=== PATIENT | male | born 1960 | race Caucasian/White ===

== ENCOUNTER 2018-06-25 18:54 | Emergency (ER) | payer BC ==
[2018-06-25 19:13] VITALS: RESP 18; BMI 36.9
[2018-06-25] MEDS ORDERED: Sodium Chloride 0.9% 1,000 ML IV STA (19:33)
--- NOTE | 2018-06-25 19:37 | ED PDOC ---
Arrival/HPI - General Chief Complaint: Abdominal Pain Time Seen by Provider: 06/25/18 19:12 Historian: Patient - History of Present Illness Narrative History of Present Illness (Text): 06/25/18 19:34 58 yo male, no prior hx, presents with abd pain since 5 days, nausea, decreased appetite. pt states no fevers, no cp, no sob. no urinary changes. Time/Duration: Other (5 days) Symptom Onset: Gradual Symptom Course: Unchanged Activities at Onset: Light Context: Home Past Medical History - Provider Review Nursing Documentation Reviewed: Yes - Pulmonary Hx Respiratory Tract Infection: Yes - Renal Hx Renal Disorder: No - Gastrointestinal Hx Gastrointestinal Disorders: No - Psychiatric Hx Depression: No Hx Emotional Abuse: No Hx Physical Abuse: No Hx Substance Use: No - Surgical History Hx Orthopedic Surgery: Yes (Right total knee replacement) - Anesthesia Hx Anesthesia: Yes - Suicidal Assessment Feels Threatened In Home Enviroment: No Family/Social History - Physician Review Nursing Documentation Reviewed: Yes Family/Social History: Unknown Family HX Smoking Status: Former Smoker Hx Alcohol Use: No Hx Substance Use: No Allergies/Home Meds Allergies/Adverse Reactions: Allergies levofloxacin [From Levaquin] Allergy (Verified 06/25/18 19:32) REDNESS Home Medications: Home Meds Medication Instructions Recorded Confirmed Acetaminophen/Oxycodone Hydr 2 tab PO Q6 PRN 06/19/15 06/19/15 [Percocet 10/325 mg Tab] Review of Systems - Physician Review All systems were reviewed & negative as marked: Yes - Review of Systems Constitutional: Normal Eyes: Normal ENT: Normal Respiratory: Normal Cardiovascular: Normal Gastrointestinal: Abdominal Pain, Nausea. absent: Vomiting Genitourinary Male: Normal Musculoskeletal: Normal Skin: Normal Neurological: Normal Endocrine: Normal Hemo/Lymphatic: Normal Psychiatric: Normal Physical Exam Vital Signs Reviewed: Yes Vital Signs Temp Pulse Resp BP Pulse Ox 06/25/18 23:05 98.8 F 68 18 138/92 H 95 06/25/18 21:00 98.4 F 68 18 132/87 95 06/25/18 19:04 98.4 F 79 18 148/102 H 99 Temperature: Afebrile Blood Pressure: Normal Pulse: Regular Respiratory Rate: Normal Appearance: Positive for: Well-Appearing, Non-Toxic, Comfortable Pain Distress: None Mental Status: Positive for: Alert and Oriented X 3 - Systems Exam Head: Present: Atraumatic, Normocephalic Pupils: Present: PERRL Extroacular Muscles: Present: EOMI Conjunctiva: Present: Normal Mouth: Present: Moist Mucous Membranes Neck: Present: Normal Range of Motion Respiratory/Chest: Present: Clear to Auscultation, Good Air Exchange. No: Respiratory Distress, Accessory Muscle Use Cardiovascular: Present: Regular Rate and Rhythm, Normal S1, S2. No: Murmurs Abdomen: Present: Tenderness (epigastric). No: Distention, Peritoneal Signs, Rebound, Guarding Back: Present: Normal Inspection Upper Extremity: Present: Normal Inspection. No: Cyanosis, Edema Lower Extremity: Present: Normal Inspection. No: Edema Neurological: Present: GCS=15, CN II-XII Intact, Speech Normal Skin: Present: Warm, Dry, Normal Color. No: Rashes Psychiatric: Present: Alert, Oriented x 3, Normal Insight, Normal Concentration Medical Decision Making ED Course and Treatment: 06/25/18 19:34 Impression: 58 year old male presents complaining of abdominal pain for the past 5 days associated with decreased appetite and nausea. ro gastritis pancreatiis colitis gallbladder pathology Plan: -- Labs -- Protonix Inj, IV Fluids, Zofran Inj -- Urinalysis -- Abdomen Complete US -- Reassess and disposition Progress Notes: EXAM: US Abdomen Complete Dictated and Authenticated by: Tirso Ríos MD 06/25/2018 10:07 PM IMPRESSION: Liver with increased echogenicity suggesting hepatic steatosis. No gallstones or biliary obstruction is noted. 2 simple hepatic cysts are present. 06/25/18 23:55 noted labs minimal elevated lipaase <3 x upper limit normal. abd soft minimal ttp. pt offered obs, declines, prefers to go home. advise strict return precautions states has pmd appt wednesday. - Lab Interpretations Lab Results: 06/25/18 20:33 06/25/18 20:33 Lab Results 06/25/18 20:33: Sodium 141, Potassium 4.1, Chloride 99, Carbon Dioxide 29, Anion Gap 16, BUN 14, Creatinine 0.8, Est GFR ( Amer) > 60, Est GFR (Non- Af Amer) > 60, Random Glucose 104, Calcium 10.0, Magnesium 2.0, Total Bilirubin 0.7, AST 27, ALT 27, Alkaline Phosphatase 89, Total Protein 8.1, Albumin 4.7, Globulin 3.4, Albumin/Globulin Ratio 1.4, Lipase 381 H 06/25/18 20:33: Urine Color Yellow, Urine Appearance Clear, Urine pH 6.5, Ur Specific [place] 1.010, Urine Protein Negative, Urine Glucose (UA) Negative, Urine Ketones 15 H, Urine Blood Negative, Urine Nitrate Negative, Urine Bilirubin Negative, Urine Urobilinogen 0.2, Ur Leukocyte Esterase Negative 06/25/18 20:33: PT 11.6, INR 1.02, APTT 30.6 06/25/18 20:33: WBC 10.9 D, RBC 5.80, Hgb 17.6, Hct 49.2, MCV 84.8, MCH 30.3, MCHC 35.8, RDW 13.3, Plt Count 315, MPV 9.9, Gran % 67.0, Lymph % (Auto) 22.8, [place] % (Auto) 7.0 H, Eos % (Auto) 2.4, Baso % (Auto) 0.8, Gran # 7.27 H, Lymph # (Auto) 2.5, [place] # (Auto) 0.8 H, Eos # (Auto) 0.3, Baso # (Auto) 0.09 I have reviewed the lab results: Yes - RAD Interpretation Radiology Orders: 06/25/18 19:33 ABDOMEN COMPLETE [US] Stat 06/25/18 22:12 ABD & PELVIS IV CONTRAST ONLY [CT] Stat - Medication Orders Current Medication Orders: Discontinued Medications Sodium Chloride (Sodium Chloride 0.9%) 1,000 mls @ 1,000 mls/hr IV .Q1H STA Stop: 06/25/18 20:32 Last Admin: 06/25/18 20:45 Dose: 1,000 mls/hr eMAR Start Stop Document 06/25/18 20:45 [place] (Rec: 06/25/18 20:45 [id number]) Intravenous Solution Start Date 06/25/18 Start Time 20:45 End Date 06/25/18 End time 21:45 Total Infusion Time 60 Ondansetron HCl (Zofran Inj) 4 mg IVP STAT STA Stop: 06/25/18 19:34 Last Admin: 06/25/18 20:43 Dose: 4 mg IVP Administration Document 06/25/18 20:43 LA (Rec: 06/25/18 20:43 [id number]) Charges for Administration # of IVP Administrations 1 Pantoprazole Sodium (Protonix Inj) 40 mg IVP STAT STA Stop: 06/25/18 19:34 Last Admin: 06/25/18 20:43 Dose: 40 mg IVP Administration Document 06/25/18 20:43 LA (Rec: 06/25/18 20:43 [email or web address]) Charges for Administration # of IVP Administrations 1 Disposition/Present on Arrival - Present on Arrival Any Indicators Present on Arrival: No History of DVT/PE: No History of Uncontrolled Diabetes: No Urinary Catheter: No History of Decub. Ulcer: No History Surgical Site Infection Following: None - Disposition Have Diagnosis and Disposition been Completed?: Yes Diagnosis: Abdominal pain, Elevated lipase Disposition: HOME/ ROUTINE Disposition Time: 23:00 Patient Problems: Current Active Problems Problem Status Onset Abdominal pain Acute Elevated lipase Acute Condition: STABLE Discharge Instructions (ExitCare): Acute Abdomen (Belly Pain) Additional Instructions: please discuss all results with your doctor. return to er with worsening symptoms or concerns. please see specialist. you are declining observation in the hospital, but you are able to return to any er with any concern at any time. Prescriptions: Pantoprazole Sodium [Protonix] 40 mg PO DAILY #20 ect Referrals: Volodymyr Gleason MD [Staff Provider] - Follow up with primary Forms: Simple [employer] (Macedonian)
[2018-06-25 20:55] LABS: PH,URINE 6.5 (4.7-8.0); URINE BILIRUBIN NEGATIVE (NEGATIVE); URINE BLOOD NEGATIVE (NEGATIVE); URINE GLUCOSE (UA) NEGATIVE (NEGATIVE); URINE LEUKOCYTE ESTERASE NEGATIVE Leu/uL (NEGATIVE); URINE PROTEIN NEGATIVE mg/dL (<30 mg/dL); URINE UROBILINOGEN 0.2 E.U./dL (<1 E.U./dL)
[2018-06-25 20:56] LABS: URINE APPEARANCE CLEAR (CLEAR); URINE COLOR YELLOW (YELLOW)
[2018-06-25 20:58] LABS: BASO # 0.09 K/mm3 (0.0-2.0); BASO % 0.8 % (0.0-3.0); EOS # 0.3 (0.0-0.7); EOS % 2.4 % (1.5-5.0); GRAN # 7.27 (1.4-6.5); HEMOGLOBIN 17.6 g/dL (14.0-18.0); LYMPH # 2.5 (1.2-3.4); LYMPH % 22.8 % (22.0-35.0); MEAN CELL VOLUME 84.8 fl (80.0-105.0); MEAN CORPUSCULAR HEMOGLOBIN 30.3 pg (25.0-35.0); MEAN CORPUSCULAR HGB CONC 35.8 g/dl (31.0-37.0); MEAN PLATELET VOLUME 9.9 fl (7.0-11.0); MONO # 0.8 (0.1-0.6); RBC 5.8 10^6/uL (3.5-6.1); RED CELL DISTRIBUTION WIDTH 13.3 % (11.5-14.5); WHITE BLOOD COUNT 10.9 10^3/ul (4.5-11.0)
[2018-06-25 21:00] VITALS: PULSE 68; O2SAT 95
[2018-06-25 21:02] LABS: INR 1.02; PROTHROMBIN TIME 11.6 SECONDS (9.4-12.5)
[2018-06-25 21:04] LABS: PARTIAL THROMBOPLASTIN TIME 30.6 Seconds (25.1-36.5)
[2018-06-25 21:06] LABS: ALB/GLOB RATIO 1.4 (1.1-1.8); ALBUMIN 4.7 g/dL (3.0-4.8); ALT/SGPT 27 U/L (7-56); AST/SGOT 27 U/L (17-59); BLOOD UREA NITROGEN 14 mg/dL (7-21); GFR AFRICAN-AMERICAN > 60; GFR NON-AFRICAN AMERICAN > 60; LIPASE 381 U/L (23-300)
[2018-06-25 23:10] VITALS: BP 138/92; TEMP 98.8
--- NOTE | 2018-06-26 13:20 | CT ---
Date of service: 06/25/2018 PROCEDURE: CT Abdomen and Pelvis with contrast HISTORY: upper abd pain elevated lipase COMPARISON: 06/19/2015 TECHNIQUE: Contrast dose: 150 cc of Omni 350 Radiation dose: Total exam DLP = 1159 mGy-cm. This CT exam was performed using one or more of the following dose reduction techniques: Automated exposure control, adjustment of the mA and/or kV according to patient size, and/or use of iterative reconstruction technique. FINDINGS: LOWER THORAX: Unremarkable. LIVER: Scattered simple cysts are seen in the liver unchanged from the previous study GALLBLADDER AND BILE DUCTS: Unremarkable. PANCREAS: Unremarkable. No gross lesion or ductal dilatation. SPLEEN: Unremarkable. ADRENALS: Unremarkable. No mass. KIDNEYS AND URETERS: Unremarkable. No hydronephrosis. No solid mass. VASCULATURE: Unremarkable. No aortic aneurysm. BOWEL: Unremarkable. No obstruction. No gross mural thickening. APPENDIX: Normal appendix. PERITONEUM: Unremarkable. No free fluid. No free air. LYMPH NODES: Unremarkable. No enlarged lymph nodes. BLADDER: Unremarkable. REPRODUCTIVE: Unremarkable. 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
--- NOTE | 2018-06-26 15:04 | US ---
Date of service: 06/25/2018 HISTORY: upper abd pain COMPARISON: None. TECHNIQUE: Sonographic evaluation of the abdomen. FINDINGS: LIVER: Measures 14.0 cm. Increased echogenicity of the liver parenchyma. No mass. No intrahepatic bile duct dilatation. Several simple cysts of the liver. GALLBLADDER: Unremarkable. No gallstones. COMMON BILE DUCT: Measures 6 mm. No stones. No dilatation. PANCREAS: Not visualized due to bowel gas RIGHT KIDNEY: Measures 11.7 x 5.8 x 7.5cm. Normal echogenicity. No calculus, mass, or hydronephrosis. LEFT KIDNEY: Measures 11.3 x 5.4 x 7.9cm. Normal echogenicity. No calculus, mass, or hydronephrosis. SPLEEN: Normal in size and contour. No mass. 9.4 x 4.2 x 4.4 cm AORTA: Not visualized IVC: Not visualized OTHER FINDINGS: The report concurs with the preliminary [facility] report IMPRESSION: Fatty infiltration of the liver. Simple cysts in the liver.
== END 2018-06-25 23:50 | disposition home or self-care (01) ==
LOC: ED 18:54
DX: R10.9 Unspecified abdominal pain (principal); R74.8 Abnormal levels of other serum enzymes; Z87.891 Personal history of nicotine dependence
CPT/HCPCS: 74177; 76700; 80053; 81003; 83690; 83735; 85025; 85610; 85730; 96361; 96374; 96375; 99284; C9113; J2405; J7030; Q9967

== ENCOUNTER 2018-09-21 19:10 | Observation (INO) | payer BC ==
[2018-09-21 19:16] VITALS: BMI 34.5
[2018-09-21] MEDS: Sodium Chloride 0.9% 1,000 ML IV SCH (19:58)
[2018-09-21] MEDS: Alum-Mag Hydrox-Simethicone Susp (30 mL) PO STA ×2 (20:01→20:05)
[2018-09-21 20:09] LABS: VENOUS BLOOD GAS PO2 49 mm/Hg (30-55); VENOUS BLOOD PH 7.51 (7.32-7.43)
--- NOTE | 2018-09-21 20:12 | ED PDOC ---
Arrival/HPI - General Chief Complaint: Abdominal Pain Time Seen by Provider: 09/21/18 19:30 - History of Present Illness Narrative History of Present Illness (Text): 58 yr old male p/w abdominal pain. Pt notes abdominal pain is throbbing, epigastric, without radiation, feels similiar to previous abdominal pain except worse. He notes that he has had previous CT scans as well as previous colonscopies with his GI doctor which have not revealed the reason for his abdominal pain. He notes that he was sent by his PMD, Dr. Salazar for further evaluation however, with possible imaging. No N/V No flank tenderness No fever, chills or night sweats No constipation or diarrhea No dark or bloody stool No headache or trauma or fall No neck pain PMD: Dr. Salazar Past Medical History - Infectious Disease Hx of Infectious Diseases: None - Pulmonary Hx Respiratory Tract Infection: Yes - Renal Hx Renal Disorder: No - Gastrointestinal Hx Gastrointestinal Disorders: No - Psychiatric Hx Depression: No Hx Emotional Abuse: No Hx Physical Abuse: No Hx Substance Use: No - Surgical History Hx Orthopedic Surgery: Yes (Right total knee replacement) - Anesthesia Hx Anesthesia: Yes - Suicidal Assessment Feels Threatened In Home Enviroment: No Family/Social History Family/Social History: Unknown Family HX Smoking Status: Former Smoker Hx Alcohol Use: No Hx Substance Use: No Allergies/Home Meds Allergies/Adverse Reactions: Allergies levofloxacin [From Levaquin] Allergy (Verified 06/25/18 19:32) REDNESS Home Medications: Home Meds Medication Instructions Recorded Confirmed Acetaminophen/Oxycodone Hydr 2 tab PO Q6 PRN 06/19/15 06/19/15 [Percocet 10/325 mg Tab] Review of Systems - Review of Systems Constitutional: absent: Fatigue, Weight Change, Fevers Eyes: absent: Vision Changes, Photophobia ENT: absent: Hearing Changes, Tinnitus, TMJ Pain Respiratory: absent: SOB, Cough, Sputum, Wheezing Cardiovascular: absent: Chest Pain, Palpitations, Edema, Calf Pain Gastrointestinal: Abdominal Pain. absent: Stool Changes, Constipation, Diarrhea, Nausea, Vomiting, Appetite Changes Genitourinary Male: absent: Dysuria, Frequency Musculoskeletal: absent: Arthralgias, Back Pain Skin: absent: Rash, Pruritis, Skin Lesions Neurological: absent: Headache, Dizziness Endocrine: absent: Diaphoresis, Polyuria, Polydipsia Hemo/Lymphatic: absent: Adenopathy Psychiatric: absent: Anxiety, Depression Physical Exam Vital Signs Reviewed: Yes Vital Signs Temp Pulse Resp BP Pulse Ox 09/21/18 19:16 98.2 F 81 20 138/93 H 99 Temperature: Afebrile Blood Pressure: Hypertensive Pulse: Regular Respiratory Rate: Normal Appearance: Positive for: Well-Appearing Pain Distress: Mild Mental Status: Positive for: Alert and Oriented X 3 - Systems Exam Head: Present: Atraumatic, Normocephalic Pupils: Present: PERRL. No: Sluggish Extroacular Muscles: Present: EOMI. No: Gaze Palsy Conjunctiva: Present: Normal. No: Injected Ears: Present: Normal Pharnyx: Present: Normal Nose (Internal): Present: Normal Inspection Neck: Present: Normal Range of Motion. No: Meningeal Signs, MIDLINE TENDERNESS Respiratory/Chest: Present: Clear to Auscultation, Good Air Exchange. No: Respiratory Distress, Accessory Muscle Use Cardiovascular: Present: Regular Rate and Rhythm, Normal S1, S2. No: Murmurs, Irregular Rhythm Abdomen: Present: Tenderness (epigastric), Normal Bowel Sounds. No: Distention, Peritoneal Signs, Rebound, Guarding Back: Present: Normal Inspection. No: CVA Tenderness, Midline Tenderness, Paraspinal Tenderness Upper Extremity: Present: Normal Inspection, Normal ROM, NORMAL PULSES. No: Cyanosis, Edema Lower Extremity: Present: Normal Inspection, CALF TENDERNESS, NORMAL PULSES Neurological: Present: GCS=15, CN II-XII Intact, Speech Normal, Motor Func Grossly Intact, Normal Sensory Function, Normal Cerebellar Funct Skin: Present: Warm, Dry, Normal Color Psychiatric: Present: Alert, Oriented x 3 Medical Decision Making ED Course and Treatment: 58 yr old M w/ hx of abdominal pain similiar to recurrent pain w/ negative colonscopy and CT recently presents w/ instructions from primary for further evaluation. Given hx of recent abdominal pain w/ workup unlikely any major findings as pt is well appearing in NAD with VSS with largely benign exam other than abdominal pain. Will seek CT however given PMD eval. No urinary complaints or d/c or rash. No hx of std. No trauma. Pending imaging and labs. 09/21/18 21:00 labs largely unremarkable besides mild leukocytosis pending CT read Signed out to Dr. Montablo - RAD Interpretation Radiology Orders: 09/21/18 19:43 ABDOMEN & PELVIS [ABD & PELVIS IV CONTRAST ONLY] [CT] Stat - Medication Orders Current Medication Orders: Sodium Chloride (Sodium Chloride 0.9%) 1,000 mls @ 100 mls/hr IV .Q10H CARMEL Discontinued Medications Al Hydrox/Mg Hydrox/Simethicone (Maalox Plus 30 Ml) 30 ml PO STAT STA Stop: 09/21/18 19:44 Dicyclomine HCl (Bentyl) 10 mg PO ONCE ONE Stop: 09/21/18 19:44 Famotidine (Pepcid) 20 mg IVP STAT STA Stop: 09/21/18 19:45 Disposition/Present on Arrival - Present on Arrival Any Indicators Present on Arrival: No History of DVT/PE: No History of Uncontrolled Diabetes: No Urinary Catheter: No History of Decub. Ulcer: No History Surgical Site Infection Following: None - Disposition Have Diagnosis and Disposition been Completed?: Yes Diagnosis: Abdominal pain Disposition Time: 21:00 Patient Problems: Current Active Problems Problem Status Onset Intractable abdominal pain Acute Condition: GOOD Referrals: Boston Salazar MD [Primary Care Provider] - Follow up with primary Forms: [employer]amb[employer] (Hungarian)
[2018-09-21 20:13] LABS: ALB/GLOB RATIO 1.5 (1.1-1.8); ALBUMIN 4.6 g/dL (3.0-4.8); ALT/SGPT 29 U/L (7-56); AST/SGOT 24 U/L (17-59); BLOOD UREA NITROGEN 8 mg/dL (7-21); CALCIUM 9.8 mg/dL (8.4-10.5); GFR NON-AFRICAN AMERICAN > 60; LIPASE 80 U/L (23-300)
[2018-09-21 20:22] LABS: BASO # 0.02 K/mm3 (0.0-2.0); BASO % 0.2 % (0.0-3.0); EOS # 0.1 (0.0-0.7); GRAN # 8.53 (1.4-6.5); GRAN % 73.7 % (50.0-68.0); LYMPH # 2.1 (1.2-3.4); LYMPH % 17.7 % (22.0-35.0); MEAN CELL VOLUME 86.2 fl (80.0-105.0); MEAN CORPUSCULAR HEMOGLOBIN 30.5 pg (25.0-35.0); MEAN CORPUSCULAR HGB CONC 35.3 g/dl (31.0-37.0); MEAN PLATELET VOLUME 10.4 fl (7.0-11.0); MONO # 0.9 (0.1-0.6); MONO % 7.4 % (1.0-6.0); RBC 5.58 10^6/uL (3.5-6.1); RED CELL DISTRIBUTION WIDTH 14.1 % (11.5-14.5); WHITE BLOOD COUNT 11.6 10^3/uL (4.5-11.0)
[2018-09-21] MEDS ORDERED: Iohexol 350 MG/100 ML VIAL ONE (20:45)
--- NOTE | 2018-09-21 21:28 | ED PDOC ---
Physical Exam Vital Signs Temp Pulse Resp BP Pulse Ox 09/21/18 19:16 98.2 F 81 20 138/93 H 99 Medical Decision Making ED Course and Treatment: 09/21/18 21:00 Case endorsed to me by Dr. Kusum Singer, pending labs, imaging, and disposition. Pt, with no significant past medical history, presented for upper abdominal pain. 09/21/18 22:18 CT Abdomen and Pelvis shows: LUNG BASES: The lung bases appear clear. No pleural effusions are seen. LIVER: Numerous likely tiny hepatic cysts are seen again throughout the liver. GALLBLADDER AND BILE DUCTS: The gallbladder appears within normal limits. No radioopaque gallstones are seen. No biliary ductal dilatation is evident. PANCREAS: Unremarkable. SPLEEN: Unremarkable. ADRENAL GLANDS: Unremarkable. KIDNEYS, URETERS, AND BLADDER: No change is seen in a likely left upper pole renal cyst again. STOMACH AND BOWEL: Scattered diverticula are seen involving the descending and sigmoid colon without evidence of diverticulitis. Mild fecal retention is seen in the rectum. APPENDIX: The appendix is partially seen but no inflammatory changes are seen to suggest acute appendicitis. PERITONEUM: No free fluid. No free air. LYMPH NODES: No lymphadenopathy is evident. REPRODUCTIVE: A mildly enlarged prostate gland is seen which is partially calcified. VASCULATURE: No evidence of abdominal aortic aneurysm. BONES: No aggressive appearing osseous lesion. No acute osseous pathology evident. IMPRESSION: 1. Numerous likely tiny hepatic cysts are seen again throughout the liver. 2. No change is seen in a likely left upper pole renal cyst again. 3. A mildly enlarged prostate gland is seen which is partially calcified. 4. Scattered diverticula are seen involving the descending and sigmoid colon without evidence of diverticulitis. Electronically signed on Sep 21, 2018 10:08:38 PM EDT by: Yon Covington M.D., RHEA Certified By [facility] [employer] [facility] Fellowship Trained MRI and CT Specialist 09/21/18 22:40 Case discussed with medical legal investigator rehabilitation services aide, who is aware and agrees with plan. 09/21/18 22:[address] Worthy, who is aware and agrees with plan. Accepts pt in to hospitalist service. Pt will go to [facility] observation for abdominal pain 09/21/18 22:52 - Lab Interpretations Lab Results: 09/21/18 19:44 09/21/18 19:44 Lab Results 09/21/18 19:44: Sodium 137, Chloride 105, Potassium 3.9, Carbon Dioxide 24, Anion Gap 13, BUN 8, Creatinine 0.7 L, Est GFR ( Amer) > 60, Est GFR (Non-Af Amer) > 60, Random Glucose 101, Calcium 9.8, Magnesium 1.9, Total Bilirubin 0.7, AST 24, ALT 29, Alkaline Phosphatase 83, Total Protein 7.7, Albumin 4.6, Globulin 3.1, Albumin/Globulin Ratio 1.5, Lipase 80 09/21/18 19:44: pO2 49, VBG pH 7.51 H, VBG pCO2 32.0 L, VBG HCO3 25.5, VBG Total CO2 26.5, VBG O2 Sat (Calc) 92.0 H, VBG Base Excess 3.0 H, VBG Potassium 3.7, Sodium 138.0, Chloride 104.0, Glucose 98, Lactate 1.4, FiO2 21.0, Venous Blood Potassium 3.7 09/21/18 19:44: WBC 11.6 H, RBC 5.58, Hgb 17.0, Hct 48.1, MCV 86.2, MCH 30.5, MCHC 35.3, RDW 14.1, Plt Count 279, MPV 10.4, Gran % 73.7 H, Lymph % (Auto) 17.7 L, [place] % (Auto) 7.4 H, Eos % (Auto) 1.0 L, Baso % (Auto) 0.2, Gran # 8.53 H, Lymph # (Auto) 2.1, [place] # (Auto) 0.9 H, Eos # (Auto) 0.1, Baso # (Auto) 0.02 - RAD Interpretation Radiology Orders: 09/21/18 19:43 ABDOMEN & PELVIS [ABD & PELVIS IV CONTRAST ONLY] [CT] Stat Flat Folder: Radiologist - Medication Orders Current Medication Orders: Sodium Chloride (Sodium Chloride 0.9%) 1,000 mls @ 100 mls/hr IV .Q10H CARMEL Last Admin: 09/21/18 19:58 Dose: 100 mls/hr eMAR Start Stop Document 09/21/18 19:58 SS (Rec: 09/21/18 19:59 SS [id number]) Intravenous Solution Start Date 09/21/18 Start Time 19:59 Discontinued Medications Al Hydrox/Mg Hydrox/Simethicone (Maalox Plus 30 Ml) 30 ml PO STAT STA Stop: 09/21/18 19:44 Last Admin: 09/21/18 20:05 Dose: Not Given Non-Admin Reason: Patient Refused Dicyclomine HCl (Bentyl) 10 mg PO ONCE ONE Stop: 09/21/18 19:44 Last Admin: 09/21/18 20:01 Dose: 10 mg Famotidine (Pepcid) 20 mg IVP STAT STA Stop: 09/21/18 19:45 Last Admin: 09/21/18 20:02 Dose: 20 mg IVP Administration Document 09/21/18 20:02 SS (Rec: 09/21/18 20:02 [id number]) Charges for Administration # of IVP Administrations 1 Disposition/Present on Arrival - Present on Arrival Any Indicators Present on Arrival: No History of DVT/PE: No History of Uncontrolled Diabetes: No Urinary Catheter: No History of Decub. Ulcer: No History Surgical Site Infection Following: None - Disposition Have Diagnosis and Disposition been Completed?: Yes Diagnosis: Abdominal pain Disposition: HOSPITALIZED Disposition Time: 22:45 Patient Problems: Current Active Problems Problem Status Onset Abdominal pain Acute Condition: GOOD
[2018-09-21] MEDS ORDERED: Morphine 2 mg/ml ISec IVP STA (22:41)
--- NOTE | 2018-09-21 23:52 | CP.PCM.HP ---
Addendum entered and electronically signed by Roshni Tripathi DO 09/22/18 16:21: Pt recently finish detox rehab for opiate dependency. Pt admitted to using marijuana. Pt had recent hx of NSAID-induced gastritis. Original Note: <Carmen Brunson - Last Filed: 09/22/18 06:10> History of Present Illness - History of Present Illness History of Present Illness: Carmen Brunson, PGY1 Hospital H&P This is a 58 year old male with PMH of chronic back pain and chronic abdominal pain of unclear etiology presenting for one day history of abdominal pain. Pain started this morning at 8am, at rest, located in the epigastric region, non radiating, sharp, rated 10/10 at worst, intermittent and not relived or exacerbated by anything. Pain is associated with nausea, decreased appetite, and numbness/tingling in the B/L upper legs. Last bowel movement was in the morning, loose and dark red spots were noted per patient. Patient was seen in ED for similar complaints on 06/25/18 and had unremarkable workup at that time. He admits to having chronic abdominal pain since May of this year. He tried medical marijuana today from a friend which improvement his pain. He currently denies CP, SOB, fevers, vomiting, chills, cough, diarrhea, constipation, urinary complaints, swelling, headaches, recent travel, sickness, trauma and lifestyle change. 12 point ROS noted here, otherwise unremarkable. Of note, patient states he has been on vicaprofen for 6 years for chronic back pain. He tried to wean off of vicaprofen but was unable to do so recently, and went to a detox program on 08/16/18 for 7 days. He has been told by his doctors that abdominal pain may a side effect from vicaprofen dependence. PMD: Dr. Salazar GI: Yimi Johnson PMH: as above SH: quit drinking 21 years ago, denies smoking, denies drugs use (except for marijuana use today from friend) Sx: right knee replacement in 2014 FH: grandmother had stomach cancer, asthma All: levofloxacin Pharmacy: [facility] [address] in [place] Meds: pantoprazole 40mg, zofran 4mg prn, lorazepam 1mg prn for sleep, lofexidine 0.18mg for opioid withdrawal Present on Admission - Present on Admission Any Indicators Present on Admission: No Past Patient History - Infectious Disease Hx of Infectious Diseases: None - Past Social History Smoking Status: Former Smoker - PULMONARY Hx Respiratory Tract Infection: Yes - RENAL Hx Chronic Kidney Disease: No - GASTROINTESTINAL Hx Gastrointestinal Disorders: No - PSYCHIATRIC Hx Depression: No Hx Emotional Abuse: No Hx Physical Abuse: No Hx Substance Use: No - SURGICAL HISTORY Hx Orthopedic Surgery: Yes (Right total knee replacement) - ANESTHESIA Hx Anesthesia: Yes Meds Allergies/Adverse Reactions: Allergies Allergy/AdvReac Type Severity Reaction Status Date / Time levofloxacin [From Levaquin] Allergy REDNESS Verified 06/25/18 19:32 Physical Exam - Constitutional Appears: No Acute Distress - Head Exam Head Exam: ATRAUMATIC, NORMAL INSPECTION - Eye Exam Eye Exam: EOMI Pupil Exam: PERRL - ENT Exam ENT Exam: Mucous Membranes Dry - Respiratory Exam Respiratory Exam: absent: Accessory Muscle Use, Respiratory Distress Additional comments: mild expiratory wheezing appreciated B/L in lower bases - Cardiovascular Exam Cardiovascular Exam: REGULAR RHYTHM, +S1, +S2 - GI/Abdominal Exam GI & Abdominal Exam: Normal Bowel Sounds. absent: Firm, Guarding Additional comments: mild epigastric appreciated - Extremities Exam Extremities exam: Positive for: normal inspection. Negative for: calf tenderness - Back Exam Back exam: NORMAL INSPECTION - Neurological Exam Neurological exam: Alert, Oriented x3 - Skin Skin Exam: Normal Color, Warm Results - Vital Signs Recent Vital Signs: Last Vital Signs Temp 98.2 F 09/21/18 19:16 Pulse 81 09/21/18 19:16 Resp 20 09/21/18 19:16 BP 138/93 H 09/21/18 19:16 Pulse Ox 99 09/21/18 19:16 - Labs Result Diagrams: 09/21/18 19:44 09/21/18 19:44 Labs: Laboratory Results - last 24 hr 09/21/18 09/21/18 09/21/18 19:44 19:44 19:44 WBC 11.6 H RBC 5.58 Hgb 17.0 Hct 48.1 MCV 86.2 MCH 30.5 MCHC 35.3 RDW 14.1 Plt Count 279 MPV 10.4 Gran % 73.7 H Lymph % (Auto) 17.7 L Richardson % (Auto) 7.4 H Eos % (Auto) 1.0 L Baso % (Auto) 0.2 Gran # 8.53 H Lymph # (Auto) 2.1 Richardson # (Auto) 0.9 H Eos # (Auto) 0.1 Baso # (Auto) 0.02 pO2 49 VBG pH 7.51 H VBG pCO2 32.0 L VBG HCO3 25.5 VBG Total CO2 26.5 VBG O2 Sat (Calc) 92.0 H VBG Base Excess 3.0 H VBG Potassium 3.7 Sodium 138.0 137 Chloride 104.0 105 Glucose 98 Lactate 1.4 FiO2 21.0 Potassium 3.9 Carbon Dioxide 24 Anion Gap 13 BUN 8 Creatinine 0.7 L Est GFR ( Amer) > 60 Est GFR (Non-Af Amer) > 60 Random Glucose 101 Calcium 9.8 Magnesium 1.9 Total Bilirubin 0.7 AST 24 ALT 29 Alkaline Phosphatase 83 Total Protein 7.7 Albumin 4.6 Globulin 3.1 Albumin/Globulin Ratio 1.5 Lipase 80 Venous Blood Potassium 3.7 Assessment & Plan - Assessment and Plan (Free Text) Assessment: This is a 58 year old male with PMH of chronic back pain and chronic abdominal pain of unclear etiology presenting for one day history of abdominal pain. Plan: Intractable abdominal pain -2/2 unclear etiology, consider chronic opiate usage -He had a colonoscopy 3 years ago which was unremarkable as per patient -He had an EGD done on 07/06/18 which showed multiple benign sessile polyps in the stomach measuring [id number], gastritis and a hiatal hernia -CTAP showed hepatic cysts, renal cyst and multiple uncomplicated diverticula. F/U official read -zofran prn -tylenol for mild pain, percocet for moderate pain, toradol for severe pain -GI on consult, Dr. Gleason Wheezing -clinically asymptomatic -duonebs prn -CXR pending PPX with SCD and protonix Patient seen and examined with attending, Dr. Worthy <Butch Worthy - Last Filed: 09/22/18 06:57> Results - Vital Signs Recent Vital Signs: Last Vital Signs Temp 98 F 09/22/18 02:15 Pulse 68 09/22/18 02:15 Resp 20 09/22/18 02:23 BP 127/88 09/22/18 02:15 Pulse Ox 99 09/22/18 02:39 - Labs Result Diagrams: 09/21/18 19:44 09/21/18 19:44 Labs: Laboratory Results - last 24 hr 09/21/18 09/21/18 09/21/18 19:44 19:44 19:44 WBC 11.6 H RBC 5.58 Hgb 17.0 Hct 48.1 MCV 86.2 MCH 30.5 MCHC 35.3 RDW 14.1 Plt Count 279 MPV 10.4 Gran % 73.7 H Lymph % (Auto) 17.7 L Richardson % (Auto) 7.4 H Eos % (Auto) 1.0 L Baso % (Auto) 0.2 Gran # 8.53 H Lymph # (Auto) 2.1 Richardson # (Auto) 0.9 H Eos # (Auto) 0.1 Baso # (Auto) 0.02 pO2 49 VBG pH 7.51 H VBG pCO2 32.0 L VBG HCO3 25.5 VBG Total CO2 26.5 VBG O2 Sat (Calc) 92.0 H VBG Base Excess 3.0 H VBG Potassium 3.7 Sodium 138.0 137 Chloride 104.0 105 Glucose 98 Lactate 1.4 FiO2 21.0 Potassium 3.9 Carbon Dioxide 24 Anion Gap 13 BUN 8 Creatinine 0.7 L Est GFR ( Amer) > 60 Est GFR (Non-Af Amer) > 60 Random Glucose 101 Calcium 9.8 Magnesium 1.9 Total Bilirubin 0.7 AST 24 ALT 29 Alkaline Phosphatase 83 Total Protein 7.7 Albumin 4.6 Globulin 3.1 Albumin/Globulin Ratio 1.5 Lipase 80 Venous Blood Potassium 3.7 Attending/Attestation - Attestation I have personally seen and examined this patient.: Yes I have fully participated in the care of the patient.: Yes I have reviewed all pertinent clinical information: Yes Notes (Text): 09/22/18 06:57 Patient was seen when he was in the ER. Medical record was reviewed. Agree with history , physical examination, assessment and plan.
[2018-09-22] MEDS ORDERED: Oxycodone/Acetaminophen 5/325 mg Tab PO PRN (00:07)
[2018-09-22] MEDS ORDERED: Albuterol-Ipratrop 3 mg / 0.5 (3 ml) UD IH PRN (00:12)
[2018-09-22] MEDS ORDERED: Pneumococcal 23-Valent Vaccine IM ONE (02:37)
[2018-09-22] MEDS ORDERED: Influenza Vaccine 60 mcg/0.5 mL SYR (4YR UP) IM ONE (02:37)
[2018-09-22] MEDS ORDERED: Pantoprazole 40 mg EC Tab PO SCH (06:00)
[2018-09-22 07:10] LABS: BASO # 0.05 K/mm3 (0.0-2.0); BASO % 0.5 % (0.0-3.0); EOS # 0.4 (0.0-0.7); EOS % 3.4 % (1.5-5.0); GRAN # 5.85 (1.4-6.5); GRAN % 56.2 % (50.0-68.0); HEMOGLOBIN 15.6 g/dL (14.0-18.0); LYMPH # 3.2 (1.2-3.4); MEAN CELL VOLUME 87.7 fl (80.0-105.0); MEAN CORPUSCULAR HEMOGLOBIN 29.6 pg (25.0-35.0); MEAN CORPUSCULAR HGB CONC 33.8 g/dl (31.0-37.0); MEAN PLATELET VOLUME 10.4 fl (7.0-11.0); MONO # 0.9 (0.1-0.6); MONO % 8.9 % (1.0-6.0); RBC 5.27 10^6/uL (3.5-6.1); RED CELL DISTRIBUTION WIDTH 14.5 % (11.5-14.5); WHITE BLOOD COUNT 10.4 10^3/uL (4.5-11.0)
--- NOTE | 2018-09-22 07:10 | RAD ---
Date of service: 09/22/2018 HISTORY: wheezing on exam COMPARISON: 06/19/2015 TECHNIQUE: Chest PA and lateral FINDINGS: LUNGS: No active pulmonary disease. PLEURA: No significant pleural effusion identified. No pneumothorax apparent. CARDIOVASCULAR: No aortic atherosclerotic calcification present. Normal cardiac size. No pulmonary vascular congestion. OSSEOUS STRUCTURES: No significant abnormalities. VISUALIZED UPPER ABDOMEN: Normal. OTHER FINDINGS: None. IMPRESSION: No active disease.
[2018-09-22 07:32] LABS: ALB/GLOB RATIO 1.3 (1.1-1.8); ALBUMIN 3.8 g/dL (3.0-4.8); ALT/SGPT 25 U/L (7-56); AST/SGOT 20 U/L (17-59); BLOOD UREA NITROGEN 9 mg/dL (7-21); CALCIUM 9.4 mg/dL (8.4-10.5); GFR NON-AFRICAN AMERICAN > 60
--- NOTE | 2018-09-22 09:30 | CT ---
Date of service: 09/21/2018 PROCEDURE: CT Abdomen and Pelvis with contrast HISTORY: abd pain, epigastric COMPARISON: CT 06/25/2018 TECHNIQUE: Contrast dose: 100 cc of Omni 350 Radiation dose: Total exam DLP = 1051.54 mGy-cm. This CT exam was performed using one or more of the following dose reduction techniques: Automated exposure control, adjustment of the mA and/or kV according to patient size, and/or use of iterative reconstruction technique. FINDINGS: LOWER THORAX: Unremarkable. LIVER: Unremarkable. No gross lesion or ductal dilatation. Multiple simple cysts GALLBLADDER AND BILE DUCTS: Unremarkable. PANCREAS: Unremarkable. No gross lesion or ductal dilatation. SPLEEN: Unremarkable. ADRENALS: Unremarkable. No mass. KIDNEYS AND URETERS: Unremarkable. No hydronephrosis. No solid mass. VASCULATURE: Unremarkable. No aortic aneurysm. No aortic atherosclerotic calcification or mural plaque present. BOWEL: Unremarkable. No obstruction. No gross mural thickening. APPENDIX: Normal appendix. PERITONEUM: Unremarkable. No free fluid. No free air. LYMPH NODES: Unremarkable. No enlarged lymph nodes. BLADDER: Unremarkable. REPRODUCTIVE: Calcifications in the prostate. BONES: Disc degeneration in the lower lumbar spine OTHER FINDINGS: The report concurs with the preliminary [facility] report IMPRESSION: No acute intra-abdominal findings
--- NOTE | 2018-09-22 09:54 | CP.PCM.CON ---
<Art Lobato - Last Filed: 09/22/18 13:20> History of Present Illness - History of Present Illness History of Present Illness: PGY-4 GI Fellow Consult Note Pt is a 58 yo Hisp Male with chronic low back pain (recently completed opiod detox, previously on opiod/NSAID combo therapy), chronic abd pain presenting with complaint of abd pain. He states in the AM of 09/21/18 he started to feel sharp, non-radiating, mostly epigatric pain. He reports some associated nausea but denied any emesis. He cannot identify any precipitating or alleviating factors. States that he tolerating eating without difficulty other than some decreased appetite at times. States that he has formed, daily to 2x/daily bowel movements. Denies any hematemesis, dysphagia, weight loss, melena nor hematochezia. 12 point ROS negative other than stated above Endo Hx EGD 07/06/[address] Felix: Sessile polyp, gastritis, Hiatal hernia. No path available. CSPY in 2015 reportedly normal per patient. MHx: As above SurgHx: right knee replacement in 2015 Meds: pantoprazole 40mg, zofran 4mg prn, lorazepam 1mg prn for sleep, lofexidine 0.18mg for opioid withdrawal FH: grandmother had stomach cancer, asthma SocHx: Quit drinking 21 years ago, denies smoking, denies drugs use (except for marijuana use CARD DOFFER from friend) All: levofloxacin GI: Yimi Granados Past Patient History - Infectious Disease Hx of Infectious Diseases: None - Past Social History Smoking Status: Former Smoker - PULMONARY Hx Respiratory Tract Infection: Yes - RENAL Hx Chronic Kidney Disease: No - MUSCULOSKELETAL/RHEUMATOLOGICAL Hx Falls: No Other/Comment: CBP - GASTROINTESTINAL Hx Gastrointestinal Disorders: No - PSYCHIATRIC Hx Depression: No Hx Emotional Abuse: No Hx Physical Abuse: No Hx Substance Use: No - SURGICAL HISTORY Hx Orthopedic Surgery: Yes (Right total knee replacement) - ANESTHESIA Hx Anesthesia: Yes Meds Allergies/Adverse Reactions: Allergies Allergy/AdvReac Type Severity Reaction Status Date / Time levofloxacin [From Levaquin] Allergy REDNESS Verified 06/25/18 19:32 - Medications Medications: Current Medications Acetaminophen (Tylenol 325mg Tab) 325 mg PO Q6 PRN PRN Reason: Pain, Mild (1-3) Albuterol/Ipratropium (Duoneb 3 Mg/0.5 Mg (3 Ml) Ud) 3 ml IH Q2H PRN PRN Reason: Shortness of Breath Sodium Chloride (Sodium Chloride 0.9%) 1,000 mls @ 100 mls/hr IV .Q10H [facility] Last Admin: 09/21/18 19:58 Dose: 100 mls/hr Ondansetron HCl (Zofran Inj) 4 mg IVP Q6 PRN PRN Reason: Nausea/Vomiting Oxycodone/Acetaminophen (Percocet 5/325 Mg Tab) 1 tab PO Q6H PRN PRN Reason: Pain, moderate (4-7) Stop: 09/25/18 00:08 Pantoprazole Sodium (Protonix Ec Tab) 40 mg PO 0600 [facility] Last Admin: 09/22/18 06:56 Dose: 40 mg Physical Exam - Constitutional Appears: Well, Non-toxic, No Acute Distress - Head Exam Head Exam: ATRAUMATIC, NORMAL INSPECTION - Eye Exam Eye Exam: EOMI. absent: Conjunctival injection, Scleral icterus - ENT Exam ENT Exam: Mucous Membranes Moist, Normal External Ear Exam. absent: Mucous Membranes Dry - Respiratory Exam Respiratory Exam: Clear to Auscultation Bilateral, NORMAL BREATHING PATTERN. absent: Accessory Muscle Use, Respiratory Distress - Cardiovascular Exam Cardiovascular Exam: REGULAR RHYTHM, RRR - GI/Abdominal Exam GI & Abdominal Exam: Normal Bowel Sounds, Soft, Tenderness (mildly ttp in epiga strum w/o guarding). absent: Bruit, Diminished Bowel Sounds, Distended, Firm, Guarding, Hernia, Mass, Organomegaly, Pulsatile Mass, Rebound, Rigid - Rectal Exam Rectal Exam: Deferred - Extremities Exam Extremities exam: Positive for: normal inspection. Negative for: pedal edema - Neurological Exam Neurological exam: Alert, CN II-XII Intact, Oriented x3 - Psychiatric Exam Psychiatric exam: Normal Affect, Normal Mood - Skin Skin Exam: Normal Color, Warm Results - Vital Signs Recent Vital Signs: Last Vital Signs Temp 98 F 09/22/18 02:15 Pulse 68 09/22/18 02:15 Resp 20 09/22/18 02:23 BP 127/88 09/22/18 02:15 Pulse Ox 99 09/22/18 02:39 - Labs Result Diagrams: 09/22/18 06:50 09/22/18 06:50 Labs: Laboratory Results - last 24 hr 09/21/18 09/21/18 09/21/18 19:44 19:44 19:44 WBC 11.6 H RBC 5.58 Hgb 17.0 Hct 48.1 MCV 86.2 MCH 30.5 MCHC 35.3 RDW 14.1 Plt Count 279 MPV 10.4 Gran % 73.7 H Lymph % (Auto) 17.7 L [place] % (Auto) 7.4 H Eos % (Auto) 1.0 L Baso % (Auto) 0.2 Gran # 8.53 H Lymph # (Auto) 2.1 [place] # (Auto) 0.9 H Eos # (Auto) 0.1 Baso # (Auto) 0.02 pO2 49 VBG pH 7.51 H VBG pCO2 32.0 L VBG HCO3 25.5 VBG Total CO2 26.5 VBG O2 Sat (Calc) 92.0 H VBG Base Excess 3.0 H VBG Potassium 3.7 Sodium 138.0 137 Chloride 104.0 105 Glucose 98 Lactate 1.4 FiO2 21.0 Potassium 3.9 Carbon Dioxide 24 Anion Gap 13 BUN 8 Creatinine 0.7 L Est GFR ( Amer) > 60 Est GFR (Non-Af Amer) > 60 Random Glucose 101 Calcium 9.8 Phosphorus Magnesium 1.9 Total Bilirubin 0.7 AST 24 ALT 29 Alkaline Phosphatase 83 Total Protein 7.7 Albumin 4.6 Globulin 3.1 Albumin/Globulin Ratio 1.5 Lipase 80 Venous Blood Potassium 3.7 Alcohol, Quantitative 09/22/18 09/22/18 09/22/18 06:50 06:50 07:30 WBC 10.4 RBC 5.27 Hgb 15.6 Hct 46.2 MCV 87.7 MCH 29.6 MCHC 33.8 RDW 14.5 Plt Count 269 MPV 10.4 Gran % 56.2 Lymph % (Auto) 31.0 [place] % (Auto) 8.9 H Eos % (Auto) 3.4 Baso % (Auto) 0.5 Gran # 5.85 Lymph # (Auto) 3.2 [place] # (Auto) 0.9 H Eos # (Auto) 0.4 Baso # (Auto) 0.05 pO2 VBG pH VBG pCO2 VBG HCO3 VBG Total CO2 VBG O2 Sat (Calc) VBG Base Excess VBG Potassium Sodium 138 Chloride 105 Glucose Lactate FiO2 Potassium 4.0 Carbon Dioxide 29 Anion Gap 8 L BUN 9 Creatinine 0.8 Est GFR ( Amer) > 60 Est GFR (Non-Af Amer) > 60 Random Glucose 90 Calcium 9.4 Phosphorus 4.3 Magnesium 2.0 Total Bilirubin 0.8 AST 20 ALT 25 Alkaline Phosphatase 60 Total Protein 6.6 Albumin 3.8 Globulin 2.8 Albumin/Globulin Ratio 1.3 Lipase Venous Blood Potassium Alcohol, Quantitative < 10 Assessment & Plan - Assessment and Plan (Free Text) Assessment: 58 yo Hisp Male with chronic LBP and abd pain presenting with Abd Pain. # Acute on Chronic Abd Pain: Unclear cause. Reassuring had EGD in June, follows with Dr. Stark at this time. Suspect related to chronic pain syndrome with recent opioid medication withdrawal completing. Patient tolerating diet and without any signed of bleeding. Can continue outpaitent GI workup for further workup. Plan: - Cont PPI - Heart Healthy Diet - F/u with Dr. Stark, can also have 2nd opinion if desired - Consider Pain Management consult - Sucralfate trial Pt seen and examined with Dr. Gleason; see attestation for further recs/changes. <Volodymyr Gleason - Last Filed: 09/22/18 16:21> Meds - Medications Medications: Current Medications Acetaminophen (Tylenol 325mg Tab) 325 mg PO Q6 PRN PRN Reason: Pain, Mild (1-3) Albuterol/Ipratropium (Duoneb 3 Mg/0.5 Mg (3 Ml) Ud) 3 ml IH Q2H PRN PRN Reason: Shortness of Breath Sodium Chloride (Sodium Chloride 0.9%) 1,000 mls @ 100 mls/hr IV .Q10H [facility] Last Admin: 09/22/18 10:19 Dose: 100 mls/hr Ondansetron HCl (Zofran Inj) 4 mg IVP Q6 PRN PRN Reason: Nausea/Vomiting Pantoprazole Sodium (Protonix Ec Tab) 40 mg PO 0600 [facility] Last Admin: 09/22/18 06:56 Dose: 40 mg Simethicone (Mylicon Liq) 40 mg PO QID [facility] Last Admin: 09/22/18 15:25 Dose: 40 mg Sucralfate (Carafate Oral Susp) 1 gm PO 0630,1130,1630,2200 CARMEL Results - Vital Signs Recent Vital Signs: Last Vital Signs Temp 98.0 F 09/22/18 14:00 Pulse 96 H 09/22/18 14:00 Resp 20 09/22/18 14:00 BP 133/100 H 09/22/18 14:00 Pulse Ox 99 09/22/18 14:00 - Labs Result Diagrams: 09/22/18 06:50 09/22/18 06:50 Labs: Laboratory Results - last 24 hr 09/21/18 09/21/18 09/21/18 19:44 19:44 19:44 WBC 11.6 H RBC 5.58 Hgb 17.0 Hct 48.1 MCV 86.2 MCH 30.5 MCHC 35.3 RDW 14.1 Plt Count 279 MPV 10.4 Gran % 73.7 H Lymph % (Auto) 17.7 L [place] % (Auto) 7.4 H Eos % (Auto) 1.0 L Baso % (Auto) 0.2 Gran # 8.53 H Lymph # (Auto) 2.1 [place] # (Auto) 0.9 H Eos # (Auto) 0.1 Baso # (Auto) 0.02 pO2 49 VBG pH 7.51 H VBG pCO2 32.0 L VBG HCO3 25.5 VBG Total CO2 26.5 VBG O2 Sat (Calc) 92.0 H VBG Base Excess 3.0 H VBG Potassium 3.7 Sodium 138.0 137 Chloride 104.0 105 Glucose 98 Lactate 1.4 FiO2 21.0 Potassium 3.9 Carbon Dioxide 24 Anion Gap 13 BUN 8 Creatinine 0.7 L Est GFR ( Amer) > 60 Est GFR (Non-Af Amer) > 60 Random Glucose 101 Calcium 9.8 Phosphorus Magnesium 1.9 Total Bilirubin 0.7 AST 24 ALT 29 Alkaline Phosphatase 83 Total Protein 7.7 Albumin 4.6 Globulin 3.1 Albumin/Globulin Ratio 1.5 Lipase 80 Venous Blood Potassium 3.7 Stool Occult Blood Urine Opiates Screen Urine Methadone Screen Ur Barbiturates Screen Ur Phencyclidine Scrn Ur Amphetamines Screen U Benzodiazepines Scrn U Oth Cocaine Metabols U Cannabinoids Screen Alcohol, Quantitative 09/22/18 09/22/18 09/22/18 06:50 06:50 07:30 WBC 10.4 RBC 5.27 Hgb 15.6 Hct 46.2 MCV 87.7 MCH 29.6 MCHC 33.8 RDW 14.5 Plt Count 269 MPV 10.4 Gran % 56.2 Lymph % (Auto) 31.0 [place] % (Auto) 8.9 H Eos % (Auto) 3.4 Baso % (Auto) 0.5 Gran # 5.85 Lymph # (Auto) 3.2 [place] # (Auto) 0.9 H Eos # (Auto) 0.4 Baso # (Auto) 0.05 pO2 VBG pH VBG pCO2 VBG HCO3 VBG Total CO2 VBG O2 Sat (Calc) VBG Base Excess VBG Potassium Sodium 138 Chloride 105 Glucose Lactate FiO2 Potassium 4.0 Carbon Dioxide 29 Anion Gap 8 L BUN 9 Creatinine 0.8 Est GFR ( Amer) > 60 Est GFR (Non-Af Amer) > 60 Random Glucose 90 Calcium 9.4 Phosphorus 4.3 Magnesium 2.0 Total Bilirubin 0.8 AST 20 ALT 25 Alkaline Phosphatase 60 Total Protein 6.6 Albumin 3.8 Globulin 2.8 Albumin/Globulin Ratio 1.3 Lipase Venous Blood Potassium Stool Occult Blood Urine Opiates Screen Urine Methadone Screen Ur Barbiturates Screen Ur Phencyclidine Scrn Ur Amphetamines Screen U Benzodiazepines Scrn U Oth Cocaine Metabols U Cannabinoids Screen Alcohol, Quantitative < 10 09/22/18 09/22/18 13:00 13:00 WBC RBC Hgb Hct MCV MCH MCHC RDW Plt Count MPV Gran % Lymph % (Auto) [place] % (Auto) Eos % (Auto) Baso % (Auto) Gran # Lymph # (Auto) [place] # (Auto) Eos # (Auto) Baso # (Auto) pO2 VBG pH VBG pCO2 VBG HCO3 VBG Total CO2 VBG O2 Sat (Calc) VBG Base Excess VBG Potassium Sodium Chloride Glucose Lactate FiO2 Potassium Carbon Dioxide Anion Gap BUN Creatinine Est GFR ( Amer) Est GFR (Non-Af Amer) Random Glucose Calcium Phosphorus Magnesium Total Bilirubin AST ALT Alkaline Phosphatase Total Protein Albumin Globulin Albumin/Globulin Ratio Lipase Venous Blood Potassium Stool Occult Blood Positive H Urine Opiates Screen Positive H Urine Methadone Screen Negative Ur Barbiturates Screen Negative Ur Phencyclidine Scrn Negative Ur Amphetamines Screen Negative U Benzodiazepines Scrn Positive H U Oth Cocaine Metabols Negative U Cannabinoids Screen Positive H Alcohol, Quantitative Attending/Attestation - Attestation I have personally seen and examined this patient.: Yes I have fully participated in the care of the patient.: Yes I have reviewed all pertinent clinical information: Yes Notes (Text): 09/22/18 16:17 I have seen and examined patient with GI fellow. Agree with above documentation with the following additions. In brief, this is a 58 year old male with history of chronic back pain with opioid use, who presents to hospital with complaint of progressive abdominal pain and bloating. He claims pain has been persistent for the past one week and became unbearable yesterday so he came to hospital. He describes sharp, 5/10 intensity, epigastric pain radiating to umbilicus. He denies associated nausea, vomiting, diarrhea, fever/chills, weight loss, rectal bleeding. He typically has 1-2 bowel movements daily. He had a colonoscopy in 2014 and an EGD in June [address] GI physician [address] Stark which were normal as per patient. Review of vitals from today are normal. Chronic back pain Abdominal pain, likely secondary to chronic opiate use CT imaging reviewed by me showing no focal abnormalities - Advance diet as tolerated - Suggest stool softner therapy - Increase PO water and fiber intake to prevent recurrent constipation - Consider use of opiate antagonist if clinically warranted - No further planned GI intervention, will sign off case. Patient to follow up with Dr. Stark after hospital discharge. Please reconsult as necessary, thank you.
[2018-09-22] MEDS: Sodium Chloride 0.9% 1,000 ML IV SCH ×2 (10:19→20:39)
[2018-09-22] MEDS ORDERED: Simethicone 40 mg/0.6 ml Liquid (30 ml) PO STA (11:02)
[2018-09-22] MEDS ORDERED: Alum-Mag Hydrox-Simethicone Susp (30 mL) PO STA (13:13)
[2018-09-22 13:38] LABS: BARBITURATES, UR NEGATIVE (NEGATIVE); BENZODIAZEPINES, UR POSITIVE (NEGATIVE); OPIATES, UR POSITIVE (NEGATIVE); PHENCYCLIDINE, UR NEGATIVE (NEGATIVE)
[2018-09-22] MEDS: Simethicone 40 mg/0.6 ml Liquid (30 ml) PO SCH ×3 (15:25→21:08)
[2018-09-22] MEDS ORDERED: Alum-Mag Hydrox-Simethicone Susp (30 mL) PO PRN (16:37)
[2018-09-22] MEDS: Sucralfate 1 gm/10 ml Oral Susp UD PO SCH ×2 (17:17→21:08)
--- NOTE | 2018-09-22 18:11 | CARD ---
APPROVED REPORT Date of service: 09/21/2018 EKG Measurement Heart [id number] <Conclusion> Normal sinus rhythm Normal Electrocardiogram
--- NOTE | 2018-09-22 18:59 | CP.PCM.PN ---
<Leidy Maguire - Last Filed: 09/22/18 21:00> Subjective - Date & Time of Evaluation Date of Evaluation: 09/22/18 Time of Evaluation: 18:55 - Subjective Subjective: Leidy Maguire DO PGY-1 [employer] Operator Progress Note for Hospitalist Dr. Fofana Pt was seen and examined this morning at bedside. Pt states that he is still feeling a bit nauseous and having some LUQ pain that is not associated with meals, but that the pain is improving. He states that the pain does not radiate anywhere, but it is still there and is more of an uncomfortable feeling. He denies any vomiting up to this point and states that he can eat and keep his food down. He denies having any dark or red stools since last night. He curr ently denies chest pain, SOB, headache, vomiting, dysuria, hematuria, hematochesia or melena. Objective - Vital Signs/Intake and Output Vital Signs (last 24 hours): Temp Pulse Resp BP Pulse Ox 98.0 F 96 H 20 133/100 H 99 09/22/18 14:00 09/22/18 14:00 09/22/18 14:00 09/22/18 14:00 09/22/18 14:00 Intake and Output: 09/22/18 09/22/18 06:59 18:59 Intake Total 600 Balance 600 - Medications Medications: Current Medications Acetaminophen (Tylenol 325mg Tab) 325 mg PO Q6 PRN PRN Reason: Pain, Mild (1-3) Al Hydrox/Mg Hydrox/Simethicone (Maalox Plus 30 Ml) 30 ml PO BID PRN PRN Reason: Indigestion / Heartburn Albuterol/Ipratropium (Duoneb 3 Mg/0.5 Mg (3 Ml) Ud) 3 ml IH Q2H PRN PRN Reason: Shortness of Breath Sodium Chloride (Sodium Chloride 0.9%) 1,000 mls @ 100 mls/hr IV .Q10H CARMEL Last Admin: 09/22/18 10:19 Dose: 100 mls/hr Ondansetron HCl (Zofran Inj) 4 mg IVP Q6 PRN PRN Reason: Nausea/Vomiting Pantoprazole Sodium (Protonix Inj) 40 mg IVP Q12 CARMEL Simethicone (Mylicon Liq) 40 mg PO QID [facility] Last Admin: 09/22/18 17:20 Dose: 30 mg Sucralfate (Carafate Oral Susp) 1 gm PO 0630,1130,1630,2200 [facility] Last Admin: 09/22/18 17:17 Dose: 1 gm - Labs Labs: 09/22/18 06:50 09/22/18 06:50 - Constitutional Appears: Well, Non-toxic, No Acute Distress - Head Exam Head Exam: ATRAUMATIC, NORMAL INSPECTION, NORMOCEPHALIC - Eye Exam Eye Exam: EOMI, Normal appearance, PERRL - Respiratory Exam Respiratory Exam: Clear to Ausculation Bilateral, NORMAL BREATHING PATTERN. absent: Accessory Muscle Use, Decreased Breath Sounds, Rales, Rhonchi, Wheezes - Cardiovascular Exam Cardiovascular Exam: RRR, +S1, +S2. absent: Gallop, Rubs - GI/Abdominal Exam GI & Abdominal Exam: Soft, Tenderness (Present in the LUQ and the RUQ, murphys sign is negative. There is no suprapubic tenderness upon palpation.), Normal Bowel Sounds. absent: Firm, Guarding, Rigid - Extremities Exam Extremities Exam: Full ROM, Normal Capillary Refill, Normal Inspection. absent: Calf Tenderness, Pedal Edema, Tenderness - Back Exam Back Exam: NORMAL INSPECTION. absent: CVA tenderness (L), CVA tenderness (R) - Neurological Exam Neurological Exam: Alert, Awake, Oriented x3 - Psychiatric Exam Psychiatric exam: Normal Affect, Normal Mood - Skin Skin Exam: Dry, Intact, Normal Color, Warm Assessment and Plan - Assessment and Plan (Free Text) Assessment: Pt is a 58 year old male with pmhx of chronic back pain and chronic abdominal pain of unclear etiology presenting for one day history of abdominal pain. He denies having any melena or hematochezia, H&H is stable. Plan: 1. Intractable abdominal pain 2/2 unclear etiology - Consider chronic opiate usage - He had an EGD done on 07/06/18 which showed multiple benign sessile polyps in the stomach measuring [id number], gastritis and a hiatal hernia - CTAP: No [id number] findings - Zofran prn - Maalox plus 30 PO - Sucralafate 1gm - GI on consult, Dr. Gleason - Liquid diet 2. Wheezing - Clinically asymptomatic - Duonebs prn - CXR - No active disease 3. PPX: - DVT: SCDs - GI: Protonix and sucralafate <Floyd Fofana - Last Filed: 09/23/18 18:31> Objective - Vital Signs/Intake and Output Vital Signs (last 24 hours): Temp Pulse Resp BP Pulse Ox 98.2 F 73 20 128/90 95 09/23/18 08:37 09/23/18 08:37 09/23/18 08:37 09/23/18 08:37 09/23/18 08:37 Intake and Output: 09/23/18 09/23/18 06:59 18:59 Intake Total 3120 Balance 3120 - Labs Labs: 09/23/18 06:45 09/23/18 06:45 Attending/Attestation - Attestation I have personally seen and examined this patient.: Yes I have fully participated in the care of the patient.: Yes I have reviewed all pertinent clinical information, including history, physical exam and plan: Yes Notes (Text): 09/23/18 18:30 Attending note; Patient seen and examined with resident. Patient is complaining of epigastric pain. Not able to tolerate regular diet. Currently on liquid diet. Complaining of bloating. Denies any nausea, vomiting. Denies any hematemesis or melena. Patient is a 58 year old male with pmhx of chronic back pain and chronic abdominal pain of unclear etiology presenting for one day history of abdominal pain. He denies having any melena or hematochezia, H&H is stable. 1. Gastritis; continue PPI. GI evaluation requested. CAT scan is normal. Patient had recent EGD and colonoscopy with as outpatient. 2. Opiate use; complete opiate cessation is strongly advised. 3. Marijuana use; cessation is strongly advised. 4. Anxiety; continue Ativan when necessary. Monitor hemoglobin closely. Upon discharge patient will follow-up with PMD Dr. Salazar.
[2018-09-23] MEDS: Sucralfate 1 gm/10 ml Oral Susp UD PO SCH ×2 (06:22→10:42)
[2018-09-23] MEDS: Sodium Chloride 0.9% 1,000 ML IV SCH (06:23)
[2018-09-23 07:16] LABS: BASO # 0.05 K/mm3 (0.0-2.0); BASO % 0.5 % (0.0-3.0); EOS # 0.3 (0.0-0.7); EOS % 2.6 % (1.5-5.0); GRAN # 6.37 (1.4-6.5); LYMPH # 3.1 (1.2-3.4); LYMPH % 29.4 % (22.0-35.0); MEAN CELL VOLUME 87.6 fl (80.0-105.0); MEAN CORPUSCULAR HGB CONC 34.2 g/dl (31.0-37.0); MEAN PLATELET VOLUME 10.1 fl (7.0-11.0); MONO # 0.8 (0.1-0.6); MONO % 7.5 % (1.0-6.0); RBC 5.34 10^6/uL (3.5-6.1); RED CELL DISTRIBUTION WIDTH 14.5 % (11.5-14.5); WHITE BLOOD COUNT 10.6 10^3/uL (4.5-11.0)
[2018-09-23 08:08] LABS: ALB/GLOB RATIO 1.3 (1.1-1.8); ALBUMIN 3.9 g/dL (3.0-4.8); ALT/SGPT 26 U/L (7-56); AST/SGOT 25 U/L (17-59); BLOOD UREA NITROGEN 9 mg/dL (7-21); CALCIUM 9.3 mg/dL (8.4-10.5); GFR NON-AFRICAN AMERICAN > 60
[2018-09-23 08:38] VITALS: BP 128/90; PULSE 73; RESP 20; TEMP 98.2; O2SAT 95
[2018-09-23] MEDS: Simethicone 40 mg/0.6 ml Liquid (30 ml) PO SCH (11:14)
--- NOTE | 2018-09-23 13:25 | CP.PCM.DIS ---
<Leidy Maguire - Last Filed: 09/23/18 18:17> Provider - Provider Date of Admission: 09/21/18 22:45 Attending physician: Floyd Fofana MD Primary care physician: Boston Salazar MD Time Spent in preparation of Discharge (in minutes): 45 Diagnosis - Discharge Diagnosis (1) Abdominal pain Status: Acute (2) Marijuana abuse Status: Acute Hospital Course - Lab Results Lab Results: Most Recent Lab Values WBC 10.6 10^3/uL (4.5-11.0) 09/23/18 06:45 RBC 5.34 10^6/uL (3.5-6.1) 09/23/18 06:45 Hgb 16.0 g/dL (14.0-18.0) 09/23/18 06:45 Hct 46.8 % (42.0-52.0) 09/23/18 06:45 MCV 87.6 fl (80.0-105.0) 09/23/18 06:45 MCH 30.0 pg (25.0-35.0) 09/23/18 06:45 MCHC 34.2 g/dl (31.0-37.0) 09/23/18 06:45 RDW 14.5 % (11.5-14.5) 09/23/18 06:45 Plt Count 274 10^3/uL (120.0-450.0) 09/23/18 06:45 MPV 10.1 fl (7.0-11.0) 09/23/18 06:45 Gran % 60.0 % (50.0-68.0) 09/23/18 06:45 Lymph % (Auto) 29.4 % (22.0-35.0) 09/23/18 06:45 Glynn % (Auto) 7.5 % (1.0-6.0) H 09/23/18 06:45 Eos % (Auto) 2.6 % (1.5-5.0) 09/23/18 06:45 Baso % (Auto) 0.5 % (0.0-3.0) 09/23/18 06:45 Gran # 6.37 (1.4-6.5) 09/23/18 06:45 Lymph # (Auto) 3.1 (1.2-3.4) 09/23/18 06:45 Glynn # (Auto) 0.8 (0.1-0.6) H 09/23/18 06:45 Eos # (Auto) 0.3 (0.0-0.7) 09/23/18 06:45 Baso # (Auto) 0.05 K/mm3 (0.0-2.0) 09/23/18 06:45 pO2 49 mm/Hg (30-55) 09/21/18 19:44 VBG pH 7.51 (7.32-7.43) H 09/21/18 19:44 VBG pCO2 32.0 (40-60) L 09/21/18 19:44 VBG HCO3 25.5 mmol/l (21-28) 09/21/18 19:44 VBG Total CO2 26.5 mmol.L (22-28) 09/21/18 19:44 VBG O2 Sat (Calc) 92.0 % (40-65) H 09/21/18 19:44 VBG Base Excess 3.0 mmol/L (0.0-2.0) H 09/21/18 19:44 VBG Potassium 3.7 mmol/L (3.6-5.2) 09/21/18 19:44 Sodium 138.0 mmol/L (132-148) 09/21/18 19:44 Chloride 104.0 mmol/L (98-107) 09/21/18 19:44 Glucose 98 mg/dl (75-110) 09/21/18 19:44 Lactate 1.4 mmol/L (0.7-2.1) 09/21/18 19:44 FiO2 21.0 % 09/21/18 19:44 Sodium 140 mmol/L (132-148) 09/23/18 06:45 Potassium 3.9 mmol/L (3.6-5.0) 09/23/18 06:45 Chloride 105 mmol/L (98-107) 09/23/18 06:45 Carbon Dioxide 28 mmol/L (21-33) 09/23/18 06:45 Anion Gap 11 (10-20) 09/23/18 06:45 BUN 9 mg/dL (7-21) 09/23/18 06:45 Creatinine 0.8 mg/dl (0.8-1.5) 09/23/18 06:45 Est GFR ( Amer) > 60 09/23/18 06:45 Est GFR (Non-Af Amer) > 60 09/23/18 06:45 Random Glucose 92 mg/dL (70-110) 09/23/18 06:45 Calcium 9.3 mg/dL (8.4-10.5) 09/23/18 06:45 Phosphorus 4.3 mg/dL (2.5-4.5) 09/22/18 06:50 Magnesium 2.0 mg/dL (1.7-2.2) 09/22/18 06:50 Total Bilirubin 1.1 mg/dL (0.2-1.3) 09/23/18 06:45 AST 25 U/L (17-59) 09/23/18 06:45 ALT 26 U/L (7-56) 09/23/18 06:45 Alkaline Phosphatase 63 U/L (38-126) 09/23/18 06:45 Total Protein 6.9 g/dL (5.8-8.3) 09/23/18 06:45 Albumin 3.9 g/dL (3.0-4.8) 09/23/18 06:45 Globulin 2.9 gm/dL 09/23/18 06:45 Albumin/Globulin Ratio 1.3 (1.1-1.8) 09/23/18 06:45 Lipase 80 U/L (23-300) 09/21/18 19:44 Venous Blood Potassium 3.7 mmol/L (3.6-5.2) 09/21/18 19:44 Stool Occult Blood Positive (NEGATIVE) H 09/22/18 13:00 Urine Opiates Screen Positive (NEGATIVE) H 09/22/18 13:00 Urine Methadone Screen Negative (NEGATIVE) 09/22/18 13:00 Ur Barbiturates Screen Negative (NEGATIVE) 09/22/18 13:00 Ur Phencyclidine Scrn Negative (NEGATIVE) 09/22/18 13:00 Ur Amphetamines Screen Negative (NEGATIVE) 09/22/18 13:00 U Benzodiazepines Scrn Positive (NEGATIVE) H 09/22/18 13:00 U Oth Cocaine Metabols Negative (NEGATIVE) 09/22/18 13:00 U Cannabinoids Screen Positive (NEGATIVE) H 09/22/18 13:00 Alcohol, Quantitative < 10 mg/dL (0-10) 09/22/18 07:30 - Hospital Course Hospital Course: Upon admission Mr. Arias is a 58 year old male with a past medical history of chronic back pain and chronic abdominal pain who was brought to the [facility] Emergency Department (ED) on 09/22 by ambulance for abdominal pain. Patient stated that the pain began that morning at rest and described it as intermittent, sharp and non-radiating in the epigastric region. The pain was associated with nausea and decreased appetite. In June 2018 patient was seen in the ED for similar complaints with an unremarkable workup. Patient also stated that he has been taking vicaprofen for 6 years for chronic back pain and an attempt to stop this medication was unsuccessful; in July 2018 he went to a detox program for 7 days. Patient stated that he has been previously informed by physicians that his abdominal pain may be due to vicaprofen dependence. Per patient, a colonoscopy 3 years ago was unremarkable and an EGD done in June 2018 showed multiple benign sessile polyps in the stomach ([id number]), gastritis, and a hiatal hernia. On ROS, patient denied fever, chills, headache, vomiting, cough, diarrhea, constipation, urinary complaints, swelling, recent travel, sick contacts, trauma, and lifestyle changes. Patient stated that home medications included pantoprazole, zofran, lorazepam, and lofexidine. Hospital course Tylenol was started for pain, duoneb was started for shortness of breath, zofran was started for nausea, protonix was continued, and simethicone was started for gas CXR and abdomen/pelvis CT were ordered. Abdomen/pelvis CT showed no intra- abdominal findings. CXR revealed no active disease. Gastroenterology (GI) was consulted and started the patient on sucralfate. GI stated that due to the recent EGD and benign findings they can follow up the pt as an outpatient. GI cleared the pt for discharge. Pt was given sucralfate and protonic for discharge and the plan was discussed with the pt. The pt is in agreement with the plan and states that he will follow up with all the doctors. For a detailed course of hospital stay, please refer to medical record. Upon discharge Patient is to follow-up with primary care doctor, Dr. Salazar, within 2-3 days of discharge. Per GI recommendations, patient is to follow-up with extended day teacher, Dr. Stark or Dr. Gleason, within 2-3 days of discharge. Patient is to resume home medications and begin taking the sucralfate and protonix. These instructions were explained to the patient, and the patient understood and is in agreement. Discharge Exam - Head Exam Head Exam: ATRAUMATIC, NORMAL INSPECTION, NORMOCEPHALIC - Eye Exam Eye Exam: EOMI, Normal appearance, PERRL - Respiratory Exam Respiratory Exam: NORMAL BREATHING PATTERN, UNREMARKABLE. absent: Accessory Muscle Use, Decreased Breath Sounds, Rales, Rhonchi, Wheezes - Cardiovascular Exam Cardiovascular Exam: RRR, +S1, +S2. absent: Gallop, Rubs - GI/Abdominal Exam GI & Abdominal Exam: Normal Bowel Sounds, Soft. absent: Rigid, Tenderness - Extremities Exam Extremities exam: normal capillary refill, normal inspection, pedal pulses present - Back Exam Back exam: NORMAL INSPECTION. absent: CVA tenderness (L), CVA tenderness (R) - Neurological Exam Neurological exam: Alert, Oriented x3 - Psychiatric Exam Psychiatric exam: Normal Affect, Normal Mood - Skin Skin Exam: Dry, Intact, Normal Color, Warm Discharge Plan - Discharge Medications Prescriptions: Pantoprazole Sodium [Protonix] 40 mg PO DAILY 14 Days #14 ect Sucralfate [Carafate Oral Susp] 1 gm PO 0630,1130,1630,2200 14 Days #58 udc - Follow Up Plan Condition: GOOD Disposition: HOME/ ROUTINE Instructions: Acute Abdomen (Belly Pain), Drug Abuse and Drug Addiction (DC), Marijuana Use and Addiction (DC) Additional Instructions: Avoid NSAID use Stop opiate and marijuana use. Follow up with Dr. Fleix in 1 week. Or, Call Dr Gleason office to make appointment. recommend outpatient urea breath test to rule out H pylori and follow up with positive heme occult blood in stool [address] [facility], [address] (Office) [phone] Please follow up with your primary care doctor, Dr. Salazar within 3-4 days. Please return to the Emergency Department if your symptoms return, worsen or if any new symptoms begin. Referrals: Boston Salazar MD [Primary Care Provider] - 1 Week Volodymyr Gleason MD [Staff Provider] - 1 Week <Floyd Fofana - Last Filed: 09/23/18 18:33> Provider - Provider Date of Admission: 09/21/18 22:45 Attending physician: Floyd Fofana MD Primary care physician: Boston Salazar MD Hospital Course - Lab Results Lab Results: Most Recent Lab Values WBC 10.6 10^3/uL (4.5-11.0) 09/23/18 06:45 RBC 5.34 10^6/uL (3.5-6.1) 09/23/18 06:45 Hgb 16.0 g/dL (14.0-18.0) 09/23/18 06:45 Hct 46.8 % (42.0-52.0) 09/23/18 06:45 MCV 87.6 fl (80.0-105.0) 09/23/18 06:45 MCH 30.0 pg (25.0-35.0) 09/23/18 06:45 MCHC 34.2 g/dl (31.0-37.0) 09/23/18 06:45 RDW 14.5 % (11.5-14.5) 09/23/18 06:45 Plt Count 274 10^3/uL (120.0-450.0) 09/23/18 06:45 MPV 10.1 fl (7.0-11.0) 09/23/18 06:45 Gran % 60.0 % (50.0-68.0) 09/23/18 06:45 Lymph % (Auto) 29.4 % (22.0-35.0) 09/23/18 06:45 Glynn % (Auto) 7.5 % (1.0-6.0) H 09/23/18 06:45 Eos % (Auto) 2.6 % (1.5-5.0) 09/23/18 06:45 Baso % (Auto) 0.5 % (0.0-3.0) 09/23/18 06:45 Gran # 6.37 (1.4-6.5) 09/23/18 06:45 Lymph # (Auto) 3.1 (1.2-3.4) 09/23/18 06:45 Glynn # (Auto) 0.8 (0.1-0.6) H 09/23/18 06:45 Eos # (Auto) 0.3 (0.0-0.7) 09/23/18 06:45 Baso # (Auto) 0.05 K/mm3 (0.0-2.0) 09/23/18 06:45 pO2 49 mm/Hg (30-55) 09/21/18 19:44 VBG pH 7.51 (7.32-7.43) H 09/21/18 19:44 VBG pCO2 32.0 (40-60) L 09/21/18 19:44 VBG HCO3 25.5 mmol/l (21-28) 09/21/18 19:44 VBG Total CO2 26.5 mmol.L (22-28) 09/21/18 19:44 VBG O2 Sat (Calc) 92.0 % (40-65) H 09/21/18 19:44 VBG Base Excess 3.0 mmol/L (0.0-2.0) H 09/21/18 19:44 VBG Potassium 3.7 mmol/L (3.6-5.2) 09/21/18 19:44 Sodium 138.0 mmol/L (132-148) 09/21/18 19:44 Chloride 104.0 mmol/L (98-107) 09/21/18 19:44 Glucose 98 mg/dl (75-110) 09/21/18 19:44 Lactate 1.4 mmol/L (0.7-2.1) 09/21/18 19:44 FiO2 21.0 % 09/21/18 19:44 Sodium 140 mmol/L (132-148) 09/23/18 06:45 Potassium 3.9 mmol/L (3.6-5.0) 09/23/18 06:45 Chloride 105 mmol/L (98-107) 09/23/18 06:45 Carbon Dioxide 28 mmol/L (21-33) 09/23/18 06:45 Anion Gap 11 (10-20) 09/23/18 06:45 BUN 9 mg/dL (7-21) 09/23/18 06:45 Creatinine 0.8 mg/dl (0.8-1.5) 09/23/18 06:45 Est GFR ( Amer) > 60 09/23/18 06:45 Est GFR (Non-Af Amer) > 60 09/23/18 06:45 Random Glucose 92 mg/dL (70-110) 09/23/18 06:45 Calcium 9.3 mg/dL (8.4-10.5) 09/23/18 06:45 Phosphorus 4.3 mg/dL (2.5-4.5) 09/22/18 06:50 Magnesium 2.0 mg/dL (1.7-2.2) 09/22/18 06:50 Total Bilirubin 1.1 mg/dL (0.2-1.3) 09/23/18 06:45 AST 25 U/L (17-59) 09/23/18 06:45 ALT 26 U/L (7-56) 09/23/18 06:45 Alkaline Phosphatase 63 U/L (38-126) 09/23/18 06:45 Total Protein 6.9 g/dL (5.8-8.3) 09/23/18 06:45 Albumin 3.9 g/dL (3.0-4.8) 09/23/18 06:45 Globulin 2.9 gm/dL 09/23/18 06:45 Albumin/Globulin Ratio 1.3 (1.1-1.8) 09/23/18 06:45 Lipase 80 U/L (23-300) 09/21/18 19:44 Venous Blood Potassium 3.7 mmol/L (3.6-5.2) 09/21/18 19:44 Stool Occult Blood Positive (NEGATIVE) H 09/22/18 13:00 Urine Opiates Screen Positive (NEGATIVE) H 09/22/18 13:00 Urine Methadone Screen Negative (NEGATIVE) 09/22/18 13:00 Ur Barbiturates Screen Negative (NEGATIVE) 09/22/18 13:00 Ur Phencyclidine Scrn Negative (NEGATIVE) 09/22/18 13:00 Ur Amphetamines Screen Negative (NEGATIVE) 09/22/18 13:00 U Benzodiazepines Scrn Positive (NEGATIVE) H 09/22/18 13:00 U Oth Cocaine Metabols Negative (NEGATIVE) 09/22/18 13:00 U Cannabinoids Screen Positive (NEGATIVE) H 09/22/18 13:00 Alcohol, Quantitative < 10 mg/dL (0-10) 09/22/18 07:30 Attending/Attestation - Attestation I have personally seen and examined this patient.: Yes I have fully participated in the care of the patient.: Yes I have reviewed all pertinent clinical information, including history, physical exam and plan: Yes Notes (Text): 09/23/18 18:32 Attending note; Patient seen and examined with resident. Epigastric pain is improved. Started on soft diet today. Denies any nausea, vomiting. Denies any hematemesis or melena. Patient is a 58 year old male with pmhx of chronic back pain and chronic abdominal pain of unclear etiology presenting for one day history of abdominal pain. He denies having any melena or hematochezia, H&H is stable. 1. Gastritis; continue PPI. GI evaluation appreciated. Patient had recent EGD and colonoscopy with as outpatient. 2. Opiate use; complete opiate cessation is strongly advised. 3. Marijuana use; cessation is strongly advised. 4. Anxiety; continue Ativan when necessary. Monitor hemoglobin closely. Patient was referred to Dr. Gleason for second opinion as needed. Patient will be discharged home. Upon discharge patient will follow-up with PMD Dr. Salazar. 09/23/18 18:32
== END 2018-09-23 14:00 | disposition home or self-care (01) ==
LOC: ED 19:10 → ERH 22:45 → 5RNO 09-22 02:15
PROVIDERS: ADMIT Internal Medicine; ATTEND Internal Medicine
DX: K29.70 Gastritis, unspecified, without bleeding (principal); F12.10 Cannabis abuse, uncomplicated; F41.9 Anxiety disorder, unspecified; K57.30 Diverticulosis of large intestine without perforation or abscess without bleeding; Z79.891 Long term (current) use of opiate analgesic; N28.1 Cyst of kidney, acquired; K31.7 Polyp of stomach and duodenum; N40.0 Benign prostatic hyperplasia without lower urinary tract symptoms; K44.9 Diaphragmatic hernia without obstruction or gangrene; M54.5 Low back pain; G89.29 Other chronic pain; K59.00 Constipation, unspecified; Z96.651 Presence of right artificial knee joint; Z87.891 Personal history of nicotine dependence
CPT/HCPCS: 36415; 71046; 74177; 80053; 82803; 83690; 83735; 84100; 85025; 93005; 96374; 96375; 96376; 99285; C9113; G0328; G0378; G0480; J1885; J2270; J7030; Q9967

== ENCOUNTER 2018-11-30 23:17 | Inpatient (IN) | payer BC, OTHER ==
--- NOTE | 2018-12-01 00:04 | ED PDOC ---
Arrival/HPI - General Chief Complaint: Abdominal Pain Time Seen by Provider: 11/30/18 23:21 Historian: Patient - History of Present Illness Narrative History of Present Illness (Text): 11/30/18 23:58 Nazario Arias is a 58 year old male, whose past medical history includes chronic back pain and chronic abdominal pain, who presents to the Emergency department complaining of diffuse abdominal pain. Patient states he has a history of chronic abdominal pain, for which he underwent a colonoscopy earlier today at [facility] and had 1 polyp removed. Patient states he had some abdominal pain following the colonoscopy but notes the pain worsened throughout the day. Patient denies any fever, chills, chest pain, shortness of breath, nausea, vomiting, diarrhea, headache, dizziness, or any other complaints. Symptom Onset: Gradual Symptom Course: Unchanged Activities at Onset: Light Context: Home Past Medical History - Provider Review Nursing Documentation Reviewed: Yes - Infectious Disease Hx of Infectious Diseases: None - Cardiac Hx Cardiac Disorders: No - Pulmonary Hx Respiratory Disorders: Yes Hx Bronchitis: Yes Hx Respiratory Tract Infection: Yes - Neurological Hx Neurological Disorder: No - HEENT Hx HEENT Disorder: No - Renal Hx Renal Disorder: No - Endocrine/Metabolic Hx Endocrine Disorders: No - Hematological/Oncological Hx Blood Disorders: No Hx Blood Transfusions: No - Integumentary Hx Dermatological Disorder: No - Musculoskeletal/Rheumatological Hx Musculoskeletal Disorders: No Hx Falls: No Other/Comment: CBP - Gastrointestinal Hx Gastrointestinal Disorders: Yes Hx Gastritis: Yes Hx Gastroesophageal Reflux: Yes - Genitourinary/Gynecological Hx Genitourinary Disorders: No - Psychiatric Hx Psychophysiologic Disorder: No Hx Depression: No Hx Emotional Abuse: No Hx Physical Abuse: No Hx Substance Use: No Other/Comment: INSOMNIA - Surgical History Hx Joint Replacement: Yes (RIGHT KNEE) Hx Orthopedic Surgery: Yes (Right total knee replacement) - Anesthesia Hx Anesthesia: Yes Hx Anesthesia Reactions: No Hx Malignant Hyperthermia: No - Suicidal Assessment Feels Threatened In Home Enviroment: No Family/Social History - Physician Review Nursing Documentation Reviewed: Yes Family/Social History: Unknown Family HX Smoking Status: Never Smoked Hx Alcohol Use: No Hx Substance Use: No Allergies/Home Meds Allergies/Adverse Reactions: Allergies cefdinir [From Omnicef] Allergy (Verified 11/30/18 23:27) RASH levofloxacin [From Levaquin] Allergy (Verified 11/30/18 23:27) DIZZINESS Home Medications: Home Meds Medication Instructions Recorded Confirmed Hyoscyamine Sulfate 0.125 mg SL Q8H PRN 11/30/18 11/30/18 Review of Systems - Physician Review All systems were reviewed & negative as marked: Yes - Review of Systems Constitutional: Normal. absent: Fevers Eyes: Normal ENT: Normal Respiratory: Normal. absent: SOB, Cough Cardiovascular: Normal. absent: Chest Pain Gastrointestinal: Abdominal Pain, Diarrhea. absent: Vomiting Genitourinary Male: Normal. absent: Dysuria, Frequency, Hematuria, Urinary Output Changes Musculoskeletal: Normal. absent: Back Pain, Neck Pain Skin: Normal. absent: Rash Neurological: Normal. absent: Headache, Dizziness Endocrine: Normal Hemo/Lymphatic: Normal Psychiatric: Normal Physical Exam Vital Signs Reviewed: Yes Vital Signs Temp Pulse Resp BP Pulse Ox 11/30/18 23:31 98.7 F 121 H 18 120/76 100 Temperature: Afebrile Blood Pressure: Normal Pulse: Regular Respiratory Rate: Normal Appearance: Positive for: Well-Appearing, Non-Toxic, Comfortable Pain Distress: None Mental Status: Positive for: Alert and Oriented X 3 - Systems Exam Head: Present: Atraumatic, Normocephalic Pupils: Present: PERRL Extroacular Muscles: Present: EOMI Conjunctiva: Present: Normal Mouth: Present: Moist Mucous Membranes Neck: Present: Normal Range of Motion Respiratory/Chest: Present: Clear to Auscultation, Good Air Exchange. No: Respiratory Distress, Accessory Muscle Use Cardiovascular: Present: Regular Rate and Rhythm, Normal S1, S2. No: Murmurs Abdomen: Present: Tenderness (Mild diffuse abdominal tenderness). No: Distention, Peritoneal Signs Back: Present: Normal Inspection Upper Extremity: Present: Normal Inspection. No: Cyanosis, Edema Lower Extremity: Present: Normal Inspection. No: Edema Neurological: Present: GCS=15, CN II-XII Intact, Speech Normal Skin: Present: Warm, Dry, Normal Color. No: Rashes Psychiatric: Present: Alert, Oriented x 3, Normal Insight, Normal Concentration Medical Decision Making ED Course and Treatment: 11/30/18 23:58 Impression: 58 year old male complaining of diffuse abdominal pain. Plan: -- CT Abdomen and Pelvis with IV contrast -- Labs, lipase -- IV fluids -- Zofran -- Morphine -- Reassess and disposition Prior Visits: Notes and results from previous visits were reviewed. Progress Notes: Reviewed EKG, sinus tachycardia at 110 bpm. Incomplete RBBB. No acute changes. 12/01/18 02:41 CT Abdomen and Pelvis reviewed, shows; Scattered simple hepatic cysts, unchanged. Distended gallbladder. Minimal adjacent fat thickening and free fluid. Mild thickening of the hepatic flexure of the colon with adjacent fat stranding. Mild prostatomegaly. Prostatic calcifications are noted. The liver is of uniform attenuation without mass or defect. There is no intra or extrahepatic biliary ductal dilatation. The spleen is normal. The pancreas is of normal contour and attenuation characteristics. There is no evidence of adrenal mass. Both kidneys demonstrate prompt and equal nephrograms. The kidneys are normal in size, shape and configuration. There is no evidence of renal or ureteral mass. No renal or ureteral calculi are identified. There is no hydroureter or hydronephrosis. No evidence for appendicitis. No evidence for small or large bowel obstruction. There is no evidence of abdominal ascites or lymphadenopathy. There is no evidence of intrinsic or extrinsic bladder mass. There is no pelvic ascites or lymphadenopathy. Images of the lung bases show no evidence of pleural or parenchymal mass. There are no pleural effusions. The bony structures are free of lytic or blastic lesions. Anterolisthesis of L5 on S1 secondary to bilateral pars defects. IMPRESSION: Scattered simple hepatic cysts, unchanged. Distended gallbladder. Sonographic evaluation is suggested. Minimal adjacent fat thickening and free fluid. Mild thickening of the hepatic flexure of the colon with adjacent fat stranding. The inflammatory pathology without perforation or pneumatosis coli. Mild prostatomegaly. Prostatic calcifications are noted. Thank you for your kind referral of this patient. Electronically signed on Dec 01, 2018 2:31:35 AM EST by: Ra Walls M.D., Certified by ROYCE, MSK, Neuroradiology 12/01/18 02:55 Case discussed with medical collections representative crayon sorting machine feeder, who is aware and agrees with pln. Care dischssed with Dr. Harrison, who is aware and agrees with plan. Accepts in to hospitalist service. Pt will go to [facility] observation for abdominal pain, leukocytosis. - Lab Interpretations I have reviewed the lab results: Yes - RAD Interpretation Fish Processing Supervisor: Radiologist - Scribe Statement The provider has reviewed the documentation as recorded by the Pedro Huffman Provider Scribe Attestation: All medical record entries made by the Scribe were at my direction and personally dictated by me. I have reviewed the chart and agree that the record accurately reflects my personal performance of the history, physical exam, medical decision making, and the department course for this patient. I have also personally directed, reviewed, and agree with the discharge instructions and disposition. Disposition/Present on Arrival - Present on Arrival Any Indicators Present on Arrival: No History of DVT/PE: No History of Uncontrolled Diabetes: No Urinary Catheter: No History of Decub. Ulcer: No History Surgical Site Infection Following: None - Disposition Have Diagnosis and Disposition been Completed?: Yes Diagnosis: Abdominal pain, Leukocytosis Disposition: HOSPITALIZED Disposition Time: 02:56 Patient Problems: Current Active Problems Problem Status Onset Abdominal pain Acute Leukocytosis Acute Condition: STABLE Referrals: Boston Salazar MD [Primary Care Provider] - Follow up with primary Forms: [employer] (Sami)
[2018-12-01] MEDS ORDERED: Sodium Chloride 0.9% 1,000 ML IV STA ×3 (00:06→03:33)
[2018-12-01] MEDS ORDERED: Morphine 4 mg/ml ISec IVP STA (00:06)
[2018-12-01 00:52] LABS: HEMOGLOBIN 16.6 g/dL (14.0-18.0); MEAN CELL VOLUME 88.4 fl (80.0-105.0); MEAN CORPUSCULAR HEMOGLOBIN 30.7 pg (25.0-35.0); MEAN CORPUSCULAR HGB CONC 34.7 g/dl (31.0-37.0); MEAN PLATELET VOLUME 10.7 fl (7.0-11.0); RBC 5.41 10^6/uL (3.5-6.1); RED CELL DISTRIBUTION WIDTH 13.6 % (11.5-14.5); WHITE BLOOD COUNT 17.5 10^3/uL (4.5-11.0)
[2018-12-01 01:04] LABS: ALB/GLOB RATIO 1.5 (1.1-1.8); ALBUMIN 4.4 g/dL (3.0-4.8); ALT/SGPT 31 U/L (7-56); AST/SGOT 30 U/L (17-59); BLOOD UREA NITROGEN 15 mg/dL (7-21); CALCIUM 9.5 mg/dL (8.4-10.5); GFR NON-AFRICAN AMERICAN > 60; LIPASE 52 U/L (23-300)
[2018-12-01] MEDS ORDERED: Iohexol 350 MG/100 ML VIAL ONE (01:17)
[2018-12-01] MEDS ORDERED: Aztreonam 1 Gm in NS 100mL 100 ML IV STA (02:50)
[2018-12-01] MEDS ORDERED: metroNIDAZOLE IV 500 mg/100 ml 500 MG/100 ML BAG IV STA (02:51)
[2018-12-01 03:19] LABS: VENOUS BLOOD GAS BASE EXCESS 0.7 mmol/L (0.0-2.0); VENOUS BLOOD GAS PO2 119 mm/Hg (30-55); VENOUS BLOOD PH 7.45 (7.32-7.43)
--- NOTE | 2018-12-01 03:51 | CP.PCM.HP ---
History of Present Illness - History of Present Illness History of Present Illness: Kayli Matute, PGY-1, Internal Medicine History and Physical for Dr. Harrison 58 year old male with past medical history of opioid substance abuse, cocaine use, alcohol abuse, gastritis, fatty infiltration of the liver presents with abdominal pain status post colonoscopy on the afternoon of 11/30. Patient reports that he has had longstanding abdominal pain since June 2018. Patient was admitted on August [address] and abdominal ultrasound did not show any acute findings. Prior to abdominal pain, patient had been taking vicaprofen for back pain and went through rehab for a week starting on 08/16/18. Patient was told that pain is likely due to assisted opiod use. Patient reports that the abdominal pain had been constant as he was seen by Dr. Guerrero and had no management at the time. Patient switched to Dr. Gleason, who started patient on probiotics and hyoscamine, which relieved his pain for a few weeks in October until 11/21/18, when the abdominal pain returned and was not relieved with any intervention. Patient reports that the abdominal pain is sharp, constant supraumbilical and spans across the abdomen. The pain does not radiate anywhere currently. Patient also feels a lot of pressure in his abdomen. He had a colonoscopy yesterday afternoon showing an 8 mm polyp in the ascending colon which was removed with hot snare. Patient reports gas after the procedure and had a small bowel movement post procedure. He has had soft stools for the majority of his life. He said that he had black stools 3-4 days ago. At that time he was taking peptobismol for helping to relieve the pain. Stools have returned to normal color and consistency. Patient denies nausea, vomiting, but has had reflux, chills, and belching. Patient denies fever, chest pain, shortness, dysuria, hematuria, lower extremity swelling. 12-point ROS was negative except for what was mentioned above. Last colonoscopy 11/30/17 Last endoscopy was in 2018 PMH: as stated above PSH: total R knee replacement in 2014 FMHx: Grandmother had stomach cancer and asthma SHx: Patient quit drinking 21 years ago; quit smoking 25 years ago. used to smoke 1 PPD for 12 years; history of cocaine use 22 years ago. current marijuana use Allergies: levofloaxicin, cefdinir PMD: Dr. Salazar GI: Dr. Gleason Present on Admission - Present on Admission Any Indicators Present on Admission: No Review of Systems - Review of Systems Review of Systems: Except for what was mentioned on HPI - Constitutional Constitutional: absent: Fever Past Patient History - Infectious Disease Hx of Infectious Diseases: None - Past Medical History & Family History Past Medical History?: Yes - Past Social History Smoking Status: Never Smoked - CARDIAC Hx Cardiac Disorders: No - PULMONARY Hx Respiratory Disorders: Yes Hx Bronchitis: Yes Hx Respiratory Tract Infection: Yes - NEUROLOGICAL Hx Neurological Disorder: No - HEENT Hx HEENT Problems: No - RENAL Hx Chronic Kidney Disease: No - ENDOCRINE/METABOLIC Hx Endocrine Disorders: No - HEMATOLOGICAL/ONCOLOGICAL Hx Blood Disorders: No Hx Blood Transfusions: No - INTEGUMENTARY Hx Dermatological Problems: No - MUSCULOSKELETAL/RHEUMATOLOGICAL Hx Musculoskeletal Disorders: No Hx Falls: No Other/Comment: CBP - GASTROINTESTINAL Hx Gastrointestinal Disorders: Yes Hx Gastritis: Yes Hx Gastroesophageal Reflux: Yes - GENITOURINARY/GYNECOLOGICAL Hx Genitourinary Disorders: No - PSYCHIATRIC Hx Psychophysiologic Disorder: No Hx Depression: No Hx Emotional Abuse: No Hx Physical Abuse: No Hx Substance Use: No Other/Comment: INSOMNIA - SURGICAL HISTORY Hx Joint Replacement: Yes (RIGHT KNEE) Hx Orthopedic Surgery: Yes (Right total knee replacement) - ANESTHESIA Hx Anesthesia: Yes Hx Anesthesia Reactions: No Hx Malignant Hyperthermia: No Meds Allergies/Adverse Reactions: Allergies Allergy/AdvReac Type Severity Reaction Status Date / Time cefdinir [From Omnicef] Allergy RASH Verified 11/30/18 23:27 levofloxacin [From Levaquin] Allergy DIZZINESS Verified 11/30/18 23:27 Physical Exam - Constitutional Appears: Well, Non-toxic, No Acute Distress - Head Exam Head Exam: ATRAUMATIC, NORMAL INSPECTION, NORMOCEPHALIC - Eye Exam Eye Exam: EOMI, PERRL - ENT Exam ENT Exam: Mucous Membranes Moist - Respiratory Exam Respiratory Exam: Clear to Auscultation Bilateral, NORMAL BREATHING PATTERN - Cardiovascular Exam Cardiovascular Exam: Tachycardia, REGULAR RHYTHM - GI/Abdominal Exam GI & Abdominal Exam: Distended, Normal Bowel Sounds, Soft, Tenderness (diffuse) - Extremities Exam Extremities exam: Positive for: full ROM - Neurological Exam Neurological exam: Alert, CN II-XII Intact, Oriented x3 - Skin Skin Exam: Dry, Intact, Normal Color Results - Vital Signs Recent Vital Signs: Last Vital Signs Temp 98.7 F 11/30/18 23:31 Pulse 123 H 12/01/18 02:51 Resp 16 12/01/18 02:51 BP 95/53 L 12/01/18 02:51 Pulse Ox 96 12/01/18 02:51 - Labs Result Diagrams: 12/01/18 00:30 12/01/18 00:30 Labs: Laboratory Results - last 24 hr 12/01/18 12/01/18 12/01/18 00:30 00:30 02:50 WBC 17.5 H D RBC 5.41 Hgb 16.6 Hct 47.8 MCV 88.4 MCH 30.7 MCHC 34.7 RDW 13.6 Plt Count 301 MPV 10.7 pO2 119 H VBG pH 7.45 H VBG pCO2 35.0 L VBG HCO3 24.3 VBG Total CO2 25.4 VBG O2 Sat (Calc) 100.0 H VBG Base Excess 0.7 VBG Potassium 3.6 Glucose 101 Lactate 1.1 FiO2 21.0 Sodium 136 133.0 Potassium 4.2 Chloride 101 102.0 Carbon Dioxide 27 Anion Gap 12 BUN 15 Creatinine 0.9 Est GFR ( Amer) > 60 Est GFR (Non-Af Amer) > 60 Random Glucose 108 Calcium 9.5 Total Bilirubin 0.8 AST 30 ALT 31 Alkaline Phosphatase 81 Total Protein 7.4 Albumin 4.4 Globulin 3.0 Albumin/Globulin Ratio 1.5 Lipase 52 Venous Blood Potassium 3.6 Assessment & Plan - Assessment and Plan (Free Text) Assessment: 58 year old male with past medical history of opioid substance abuse, cocaine use, alcohol abuse, gastritis, fatty infiltration of the liver presents with abdominal pain status post colonoscopy on the afternoon of 11/30. Plan: Abdominal pain 2/2 to chronic pain vs. polypectomy -Patient had recent polypectomy on endoscopy of an 8 mm pedunculated polyp in the ascending colon -Abdominal CT: scattered simple hepatic cysts, distended gallbladder, fat thickening and free fluid, mild thickening of hepatic flexure of the colon with adjacent fat stranding -Lipase unremarkable -Clear liquid diet -1 L bolus of NS -125 cc/hr of NS -Tylenol for moderate pain and tramadol for severe pain. Avoid opiates as patient is a past abuser of opiates. -Start lactobacillus and hyoscyamine. -Dr. Gleason, GI, consulted for recommendations. Leukocytosis -Patient currently has leukocytosis of 17.5 and Temperature of 101.2 -CXR and UA ordered to evaluate for etiology of possible infection -Abdominal CT does not give overt cause of possible infection -Given one dose of aztreonam in the ED -Dr. Wade, ID consulted for recommendations. GI prophylaxis: protonix 40 mg daily DVT prophylaxis: lovenox 40 mg daily Patient plan discussed with Dr. Harrison. - Date & Time Date: 12/01/18 Time: 03:54
[2018-12-01] MEDS ORDERED: Hyoscyamine 0.125 mg SL Tab PO PRN (04:06)
[2018-12-01] MEDS ORDERED: Enoxaparin 40 mg Syringe SC STA (04:08)
[2018-12-01 06:08] VITALS: BMI 33.7
[2018-12-01 06:31] LABS: URINE BILIRUBIN NEGATIVE (NEGATIVE); URINE BLOOD NEGATIVE (NEGATIVE); URINE GLUCOSE (UA) NEGATIVE (NEGATIVE); URINE LEUKOCYTE ESTERASE NEGATIVE Leu/uL (NEGATIVE); URINE PROTEIN NEGATIVE mg/dL (<30 mg/dL); URINE UROBILINOGEN 0.2 E.U./dL (<1 E.U./dL)
[2018-12-01 06:41] LABS: URINE APPEARANCE CLEAR (CLEAR); URINE COLOR YELLOW (YELLOW)
[2018-12-01 07:01] LABS: BENZODIAZEPINES, UR NEGATIVE (NEGATIVE)
[2018-12-01 07:02] LABS: BARBITURATES, UR NEGATIVE (NEGATIVE); OPIATES, UR POSITIVE (NEGATIVE); PHENCYCLIDINE, UR NEGATIVE (NEGATIVE)
--- NOTE | 2018-12-01 08:09 | RAD ---
Date of service: 12/01/2018 HISTORY: rule out pneumonia COMPARISON: 09/22/2018 FINDINGS: LUNGS: No active pulmonary disease. PLEURA: No significant pleural effusion identified, no pneumothorax apparent. CARDIOVASCULAR: No aortic atherosclerotic calcification present. Normal cardiac size. No pulmonary vascular congestion. OSSEOUS STRUCTURES: No significant abnormalities. VISUALIZED UPPER ABDOMEN: Normal. OTHER FINDINGS: None. IMPRESSION: No active disease.
--- NOTE | 2018-12-01 08:39 | CP.PCM.CON ---
History of Present Illness - History of Present Illness History of Present Illness: PGY-[address] Fallon ID consult: Abdominal pain and fever Mr Arias, 58 M, w/ PMH marijuana user, remote hx substance/ETOH abuse, chronic abdominal pain, gastritis, liver fatty, chronic back pain (completed opioid detox, previously on vicaprofen) C/O abdominal pain s/p colonoscopy on 11/30. The abdominal pain is sharp, 10/10, constant supraumbilical, spans across the abdomen with pressure, no radiation. colonoscopy yesterday afternoon showing an 8 mm polyp in the ascending colon which was removed with hot snare. Patient reports gas after the procedure and had a small bowel movement post procedure, soft stool (normal). peptobismol helps relieve the pain. Patient had chronic abdominal pain since June 2018, was admitted on August 2018, negative abdominal CT/abdominal ultrasound. His GI doctor is Dr Gleason, who started patient on probiotics and hyoscyamine, which relieved his pain for a few weeks in October until 11/21/18, when the abdominal pain returned and was not relieved with any intervention. therefore, he had a colonoscipy yesterday ROS: Denies cough, sore throat, body ache. No sick contact, no recent travel, no antibiotics. Patient denies nausea, vomiting, but has had reflux, chills, and belching. Gem ent denies fever, chest pain, shortness, dysuria, hematuria, lower extremity swelling. 12-point ROS was negative except for what was mentioned above. recent hosp 09/2018 Last colonoscopy 11/30/17 Last endoscopy was in 2018 - gastric polyps s/p biopsy PMH: Multisubstance/ETOH abuse gastritis Fatty liver chronic abdominal pain chronic back pain on vicaprofen PSH: total R knee replacement in 2014 FMHx: Grandmother had stomach cancer and asthma SHx: Patient quit drinking 21 years ago; quit smoking 25 years ago. used to smoke 1 PPD for 12 years; history of cocaine use 22 years ago. current marijuana use Allergies: levofloaxicin, cefdinir PMD: Dr. Salazar GI: Dr. Gleason VS T 101.2, HR 120s, 95/53, RR 21, 96RA WBC 17.5, lactate 1.1 CMP nl. U/A nl. UDS (+) opiates and cannabinoid CT A/P (IV contrast): scatter simple hepatic cysts unchanged, mild thickening of colon with fat straining at hepatic flexure, no perforation/pneumoatosis coli. prostate calcification EKG: sinus tach 110. Qtc 443 ED give aztreonam and flagyl, morphine, 2L NS Past Patient History - Infectious Disease Hx of Infectious Diseases: None - Past Medical History & Family History Past Medical History?: Yes - Past Social History Smoking Status: Never Smoked - CARDIAC Hx Cardiac Disorders: No - PULMONARY Hx Respiratory Disorders: Yes Hx Bronchitis: Yes Hx Respiratory Tract Infection: Yes - NEUROLOGICAL Hx Neurological Disorder: No - HEENT Hx HEENT Problems: No - RENAL Hx Chronic Kidney Disease: No - ENDOCRINE/METABOLIC Hx Endocrine Disorders: No - HEMATOLOGICAL/ONCOLOGICAL Hx Blood Disorders: No - INTEGUMENTARY Hx Dermatological Problems: No - MUSCULOSKELETAL/RHEUMATOLOGICAL Hx Musculoskeletal Disorders: No Hx Falls: No Other/Comment: CBP - GASTROINTESTINAL Hx Gastrointestinal Disorders: Yes Hx Gastroesophageal Reflux: Yes - GENITOURINARY/GYNECOLOGICAL Hx Genitourinary Disorders: No - PSYCHIATRIC Hx Psychophysiologic Disorder: No Hx Depression: No Hx Emotional Abuse: No Hx Physical Abuse: No Other/Comment: INSOMNIA - SURGICAL HISTORY Hx Joint Replacement: Yes (RIGHT KNEE) Hx Orthopedic Surgery: Yes (Right total knee replacement) - ANESTHESIA Hx Anesthesia: Yes Hx Anesthesia Reactions: No Hx Malignant Hyperthermia: No Meds Allergies/Adverse Reactions: Allergies Allergy/AdvReac Type Severity Reaction Status Date / Time cefdinir [From Omnicef] Allergy RASH Verified 12/01/18 06:33 levofloxacin [From Levaquin] Allergy DIZZINESS Verified 12/01/18 06:33 - Medications Medications: Current Medications Acetaminophen (Tylenol 325mg Tab) 650 mg PO Q6H PRN PRN Reason: Pain, moderate (4-7) Last Admin: 12/01/18 03:51 Dose: 650 mg Acetaminophen (Tylenol 325mg Tab) 650 mg PO Q4 PRN PRN Reason: Fever >100.4 F Hyoscyamine (Levsin) 0.125 mg PO Q4H PRN PRN Reason: GI distress Sodium Chloride (Sodium Chloride 0.9%) 1,000 mls @ 125 mls/hr IV .Q8H STA Stop: 12/01/18 11:32 Last Admin: 12/01/18 04:34 Dose: 125 mls/hr Lactobacillus Acidophilus (Bacid Acidophilus) 1 cap PO BID CARMEL Pantoprazole Sodium (Protonix Inj) 40 mg IVP DAILY CARMEL Tramadol HCl (Ultram) 50 mg PO TID PRN PRN Reason: Pain, severe (8-10) Last Admin: 12/01/18 03:52 Dose: 50 mg Results - Vital Signs Recent Vital Signs: Last Vital Signs Temp 101.2 F H 12/01/18 03:41 Pulse 111 H 12/01/18 04:38 Resp 18 12/01/18 05:39 BP 112/63 12/01/18 04:38 Pulse Ox 96 12/01/18 04:38 - Labs Result Diagrams: 12/01/18 08:45 12/01/18 08:45 Labs: Laboratory Results - last 24 hr 12/01/18 12/01/18 12/01/18 00:30 00:30 02:50 WBC 17.5 H D RBC 5.41 Hgb 16.6 Hct 47.8 MCV 88.4 MCH 30.7 MCHC 34.7 RDW 13.6 Plt Count 301 MPV 10.7 pO2 119 H VBG pH 7.45 H VBG pCO2 35.0 L VBG HCO3 24.3 VBG Total CO2 25.4 VBG O2 Sat (Calc) 100.0 H VBG Base Excess 0.7 VBG Potassium 3.6 Glucose 101 Lactate 1.1 FiO2 21.0 Sodium 136 133.0 Potassium 4.2 Chloride 101 102.0 Carbon Dioxide 27 Anion Gap 12 BUN 15 Creatinine 0.9 Est GFR ( Amer) > 60 Est GFR (Non-Af Amer) > 60 Random Glucose 108 Calcium 9.5 Total Bilirubin 0.8 AST 30 ALT 31 Alkaline Phosphatase 81 Total Protein 7.4 Albumin 4.4 Globulin 3.0 Albumin/Globulin Ratio 1.5 Lipase 52 Venous Blood Potassium 3.6 Urine Color Urine Appearance Urine pH Ur Specific Jewett Urine Protein Urine Glucose (UA) Urine Ketones Urine Blood Urine Nitrate Urine Bilirubin Urine Urobilinogen Ur Leukocyte Esterase Urine Opiates Screen Urine Methadone Screen Ur Barbiturates Screen Ur Phencyclidine Scrn Ur Amphetamines Screen U Benzodiazepines Scrn U Oth Cocaine Metabols U Cannabinoids Screen 12/01/18 12/01/18 04:20 04:20 WBC RBC Hgb Hct MCV MCH MCHC RDW Plt Count MPV pO2 VBG pH VBG pCO2 VBG HCO3 VBG Total CO2 VBG O2 Sat (Calc) VBG Base Excess VBG Potassium Glucose Lactate FiO2 Sodium Potassium Chloride Carbon Dioxide Anion Gap BUN Creatinine Est GFR ( Amer) Est GFR (Non-Af Amer) Random Glucose Calcium Total Bilirubin AST ALT Alkaline Phosphatase Total Protein Albumin Globulin Albumin/Globulin Ratio Lipase Venous Blood Potassium Urine Color Yellow Urine Appearance Clear Urine pH 6.0 Ur Specific Jewett 1.015 Urine Protein Negative Urine Glucose (UA) Negative Urine Ketones Trace H Urine Blood Negative Urine Nitrate Negative Urine Bilirubin Negative Urine Urobilinogen 0.2 Ur Leukocyte Esterase Negative Urine Opiates Screen Positive H Urine Methadone Screen Negative Ur Barbiturates Screen Negative Ur Phencyclidine Scrn Negative Ur Amphetamines Screen Negative U Benzodiazepines Scrn Negative U Oth Cocaine Metabols Negative U Cannabinoids Screen Positive H Assessment & Plan - Assessment and Plan (Free Text) Plan: A: 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 s/r/d/w Dr. Wade
--- NOTE | 2018-12-01 08:47 | CT ---
Date of service: 12/01/2018 PROCEDURE: CT Abdomen and Pelvis with contrast HISTORY: abdominal pain COMPARISON: 09/21/2018 TECHNIQUE: Contrast dose: 100 cc of Omni 350 Radiation dose: Total exam DLP = 805.01 mGy-cm. This CT exam was performed using one or more of the following dose reduction techniques: Automated exposure control, adjustment of the mA and/or kV according to patient size, and/or use of iterative reconstruction technique. FINDINGS: LOWER THORAX: Unremarkable. LIVER: Unremarkable. No gross lesion or ductal dilatation. Simple cysts GALLBLADDER AND BILE DUCTS: Mildly distended gallbladder PANCREAS: Unremarkable. No gross lesion or ductal dilatation. SPLEEN: Unremarkable. ADRENALS: Unremarkable. No mass. KIDNEYS AND URETERS: Unremarkable. No hydronephrosis. No solid mass. VASCULATURE: Unremarkable. No aortic aneurysm. No aortic atherosclerotic calcification or mural plaque present. BOWEL: There is a focal short segment area of mural thickening in the hepatic flexure of the colon. This could represent a localized colitis. There is also some fat stranding in this area. APPENDIX: Normal appendix. PERITONEUM: Unremarkable. No free fluid. No free air. LYMPH NODES: Unremarkable. No enlarged lymph nodes. BLADDER: Unremarkable. REPRODUCTIVE: Unremarkable. BONES: No acute fracture. OTHER FINDINGS: The report concurs with the preliminary [facility] report IMPRESSION: There is a focal short segment area of mural thickening in the hepatic flexure of the colon. This could represent a localized colitis. There is also some fat stranding in this area.
[2018-12-01 09:02] LABS: BASO # 0.03 K/mm3 (0.0-2.0); BASO % 0.1 % (0.0-3.0); GRAN # 30.44 (1.4-6.5); GRAN % 85.4 % (50.0-68.0); LYMPH # 2.6 (1.2-3.4); LYMPH % 7.3 % (22.0-35.0); MEAN CELL VOLUME 88.7 fl (80.0-105.0); MEAN CORPUSCULAR HEMOGLOBIN 30.7 pg (25.0-35.0); MEAN CORPUSCULAR HGB CONC 34.6 g/dl (31.0-37.0); MEAN PLATELET VOLUME 10.4 fl (7.0-11.0); MONO # 2.6 (0.1-0.6); MONO % 7.2 % (1.0-6.0); PLATELET COUNT 280 10^3/uL (120.0-450.0); RBC 4.88 10^6/uL (3.5-6.1); RED CELL DISTRIBUTION WIDTH 13.8 % (11.5-14.5)
[2018-12-01 09:12] LABS: WHITE BLOOD COUNT 35.7 10^3/uL (4.5-11.0)
[2018-12-01 09:23] LABS: ALB/GLOB RATIO 1.3 (1.1-1.8); ALBUMIN 3.6 g/dL (3.0-4.8); ALT/SGPT 26 U/L (7-56); AST/SGOT 21 U/L (17-59); BLOOD UREA NITROGEN 11 mg/dL (7-21); CALCIUM 8.6 mg/dL (8.4-10.5); GFR NON-AFRICAN AMERICAN > 60
[2018-12-01] MEDS: Lactobacillus Acidophilus 500 MU Cap PO SCH ×2 (09:54→17:41)
[2018-12-01 10:19] LABS: ATYPICAL LYMPHOCYTE 4 % (0.0-0.0); BAND 4 % (0-2); LYMPHOCYTE 4 % (22.0-35.0); MONOCYTE 3 % (1.0-6.0); NEUTROPHIL 84 % (50.0-70.0)
[2018-12-01 10:20] LABS: BASOPHIL 1 % (0.0-1.0)
--- NOTE | 2018-12-01 11:37 | CP.PCM.CON ---
<Luis AlfredoSonieldon - Last Filed: 12/01/18 11:33> History of Present Illness - History of Present Illness History of Present Illness: PGY-4 GI Fellow Consult Note Mr. Arias is a 58 yo Hisp Male with chronic low back pain (completed opioid detox, previously on opiod/NSAID combo therapy), chronic abd pain presenting with complaint of abd pain post colonoscopy. He states that he has chronic abd pain that is described as "severe" over his upper half of his abdomen intermittently, but that over the last several hours in the evening he states that the pain seemed to be more intense than usual. He spoke to me on the phone and due to the increased severity of his symptoms, I instructed him to go to the emergency room for evaluation. He denied any fevers, N/V, SOB, dysphagia, melena nor hematochezia. He states that he moved his bowel "a little bit" post procedure, but not much thereafter. States he is still passing gas and tolerating diet without issues. 12 point ROS negative other than stated above Endo Hx CSPY 11/30/18: Fair prep, 8mm Ascending colon polyp removed with hot snare, random biopsies EGD 07/06/[address] Felix: Sessile polyp, gastritis, Hiatal hernia. No path available. MHx: As above SurgHx: right knee replacement in 2015 Meds: Reviewed in chart FH: grandmother had stomach cancer, asthma SocHx: Quit drinking 21 years ago, denies smoking, denies drugs use (except for marijuana) All: levofloxacin, cefdinir ("makes me loopy") Past Patient History - Infectious Disease Hx of Infectious Diseases: None - Past Medical History & Family History Past Medical History?: Yes - Past Social History Smoking Status: Never Smoked - CARDIAC Hx Cardiac Disorders: No - PULMONARY Hx Respiratory Disorders: Yes Hx Bronchitis: Yes Hx Respiratory Tract Infection: Yes - NEUROLOGICAL Hx Neurological Disorder: No - HEENT Hx HEENT Problems: No - RENAL Hx Chronic Kidney Disease: No - ENDOCRINE/METABOLIC Hx Endocrine Disorders: No - HEMATOLOGICAL/ONCOLOGICAL Hx Blood Disorders: No - INTEGUMENTARY Hx Dermatological Problems: No - MUSCULOSKELETAL/RHEUMATOLOGICAL Hx Musculoskeletal Disorders: No Hx Falls: No Other/Comment: CBP - GASTROINTESTINAL Hx Gastrointestinal Disorders: Yes Hx Gastroesophageal Reflux: Yes - GENITOURINARY/GYNECOLOGICAL Hx Genitourinary Disorders: No - PSYCHIATRIC Hx Psychophysiologic Disorder: No Hx Depression: No Hx Emotional Abuse: No Hx Physical Abuse: No Other/Comment: INSOMNIA - SURGICAL HISTORY Hx Joint Replacement: Yes (RIGHT KNEE) Hx Orthopedic Surgery: Yes (Right total knee replacement) - ANESTHESIA Hx Anesthesia: Yes Hx Anesthesia Reactions: No Hx Malignant Hyperthermia: No Meds Allergies/Adverse Reactions: Allergies Allergy/AdvReac Type Severity Reaction Status Date / Time cefdinir [From Omnicef] Allergy RASH Verified 12/01/18 06:33 levofloxacin [From Levaquin] Allergy DIZZINESS Verified 12/01/18 06:33 - Medications Medications: Current Medications Acetaminophen (Tylenol 325mg Tab) 650 mg PO Q6H PRN PRN Reason: Pain, moderate (4-7) Last Admin: 12/01/18 03:51 Dose: 650 mg Acetaminophen (Tylenol 325mg Tab) 650 mg PO Q4 PRN PRN Reason: Fever >100.4 F Hyoscyamine (Levsin) 0.125 mg PO Q4H PRN PRN Reason: GI distress Lactobacillus Acidophilus (Bacid Acidophilus) 1 cap PO BID [facility] Last Admin: 12/01/18 09:54 Dose: 1 cap Pantoprazole Sodium (Protonix Inj) 40 mg IVP DAILY [facility] Last Admin: 12/01/18 09:55 Dose: 40 mg Tramadol HCl (Ultram) 50 mg PO TID PRN PRN Reason: Pain, severe (8-10) Last Admin: 12/01/18 09:55 Dose: 50 mg Physical Exam - Constitutional Appears: Well, No Acute Distress - Head Exam Head Exam: ATRAUMATIC, NORMAL INSPECTION - Eye Exam Eye Exam: EOMI. absent: Scleral icterus - ENT Exam ENT Exam: Mucous Membranes Moist. absent: Mucous Membranes Dry - Respiratory Exam Respiratory Exam: Accessory Muscle Use, Clear to Auscultation Bilateral, NORMAL BREATHING PATTERN - Cardiovascular Exam Cardiovascular Exam: REGULAR RHYTHM, RRR - GI/Abdominal Exam GI & Abdominal Exam: Normal Bowel Sounds, Soft, Tenderness (mildly tender to deep palpation in RUQ). absent: Bruit, Diminished Bowel Sounds, Distended, Fir m, Guarding, Hernia, Organomegaly, Pulsatile Mass, Rebound, Rigid - Rectal Exam Rectal Exam: Deferred - Extremities Exam Extremities exam: Positive for: normal inspection, pedal edema - Neurological Exam Neurological exam: Alert, CN II-XII Intact, Oriented x3 - Psychiatric Exam Psychiatric exam: Normal Affect, Normal Mood - Skin Skin Exam: Normal Color, Warm Results - Vital Signs Recent Vital Signs: Last Vital Signs Temp 98.3 F 12/01/18 09:45 Pulse 99 H 12/01/18 06:00 Resp 18 12/01/18 06:00 BP 103/56 L 12/01/18 06:00 Pulse Ox 95 12/01/18 06:00 - Labs Result Diagrams: 12/01/18 08:45 12/01/18 08:45 Labs: Laboratory Results - last 24 hr 12/01/18 12/01/18 12/01/18 00:30 00:30 02:50 WBC 17.5 H D RBC 5.41 Hgb 16.6 Hct 47.8 MCV 88.4 MCH 30.7 MCHC 34.7 RDW 13.6 Plt Count 301 MPV 10.7 Gran % Lymph % (Auto) [place] % (Auto) Eos % (Auto) Baso % (Auto) Gran # Lymph # (Auto) [place] # (Auto) Eos # (Auto) Baso # (Auto) Neutrophils % (Manual) Band Neutrophils % Lymphocytes % (Manual) Atypical Lymphs % Monocytes % (Manual) Basophils % (Manual) pO2 119 H VBG pH 7.45 H VBG pCO2 35.0 L VBG HCO3 24.3 VBG Total CO2 25.4 VBG O2 Sat (Calc) 100.0 H VBG Base Excess 0.7 VBG Potassium 3.6 Glucose 101 Lactate 1.1 FiO2 21.0 Sodium 136 133.0 Potassium 4.2 Chloride 101 102.0 Carbon Dioxide 27 Anion Gap 12 BUN 15 Creatinine 0.9 Est GFR ( Amer) > 60 Est GFR (Non-Af Amer) > 60 Random Glucose 108 Calcium 9.5 Total Bilirubin 0.8 AST 30 ALT 31 Alkaline Phosphatase 81 Total Protein 7.4 Albumin 4.4 Globulin 3.0 Albumin/Globulin Ratio 1.5 Lipase 52 Venous Blood Potassium 3.6 Urine Color Urine Appearance Urine pH Ur Specific [place] Urine Protein Urine Glucose (UA) Urine Ketones Urine Blood Urine Nitrate Urine Bilirubin Urine Urobilinogen Ur Leukocyte Esterase Urine Opiates Screen Urine Methadone Screen Ur Barbiturates Screen Ur Phencyclidine Scrn Ur Amphetamines Screen U Benzodiazepines Scrn U Oth Cocaine Metabols U Cannabinoids Screen 12/01/18 12/01/18 12/01/18 04:20 04:20 08:45 WBC 35.7 H* D RBC 4.88 Hgb 15.0 Hct 43.3 MCV 88.7 MCH 30.7 MCHC 34.6 RDW 13.8 Plt Count 280 MPV 10.4 Gran % 85.4 H Lymph % (Auto) 7.3 L [place] % (Auto) 7.2 H Eos % (Auto) 0.0 L Baso % (Auto) 0.1 Gran # 30.44 H Lymph # (Auto) 2.6 [place] # (Auto) 2.6 H Eos # (Auto) 0.0 Baso # (Auto) 0.03 Neutrophils % (Manual) 84 H Band Neutrophils % 4 H Lymphocytes % (Manual) 4 L Atypical Lymphs % 4 H Monocytes % (Manual) 3 Basophils % (Manual) 1 pO2 VBG pH VBG pCO2 VBG HCO3 VBG Total CO2 VBG O2 Sat (Calc) VBG Base Excess VBG Potassium Glucose Lactate FiO2 Sodium Potassium Chloride Carbon Dioxide Anion Gap BUN Creatinine Est GFR ( Amer) Est GFR (Non-Af Amer) Random Glucose Calcium Total Bilirubin AST ALT Alkaline Phosphatase Total Protein Albumin Globulin Albumin/Globulin Ratio Lipase Venous Blood Potassium Urine Color Yellow Urine Appearance Clear Urine pH 6.0 Ur Specific [place] 1.015 Urine Protein Negative Urine Glucose (UA) Negative Urine Ketones Trace H Urine Blood Negative Urine Nitrate Negative Urine Bilirubin Negative Urine Urobilinogen 0.2 Ur Leukocyte Esterase Negative Urine Opiates Screen Positive H Urine Methadone Screen Negative Ur Barbiturates Screen Negative Ur Phencyclidine Scrn Negative Ur Amphetamines Screen Negative U Benzodiazepines Scrn Negative U Oth Cocaine Metabols Negative U Cannabinoids Screen Positive H 12/01/18 08:45 WBC RBC Hgb Hct MCV MCH MCHC RDW Plt Count MPV Gran % Lymph % (Auto) [place] % (Auto) Eos % (Auto) Baso % (Auto) Gran # Lymph # (Auto) [place] # (Auto) Eos # (Auto) Baso # (Auto) Neutrophils % (Manual) Band Neutrophils % Lymphocytes % (Manual) Atypical Lymphs % Monocytes % (Manual) Basophils % (Manual) pO2 VBG pH VBG pCO2 VBG HCO3 VBG Total CO2 VBG O2 Sat (Calc) VBG Base Excess VBG Potassium Glucose Lactate FiO2 Sodium 138 Potassium 4.3 Chloride 107 Carbon Dioxide 25 Anion Gap 10 BUN 11 Creatinine 0.7 L Est GFR ( Amer) > 60 Est GFR (Non-Af Amer) > 60 Random Glucose 102 Calcium 8.6 Total Bilirubin 1.0 AST 21 ALT 26 Alkaline Phosphatase 56 Total Protein 6.4 Albumin 3.6 Globulin 2.8 Albumin/Globulin Ratio 1.3 Lipase Venous Blood Potassium Urine Color Urine Appearance Urine pH Ur Specific [place] Urine Protein Urine Glucose (UA) Urine Ketones Urine Blood Urine Nitrate Urine Bilirubin Urine Urobilinogen Ur Leukocyte Esterase Urine Opiates Screen Urine Methadone Screen Ur Barbiturates Screen Ur Phencyclidine Scrn Ur Amphetamines Screen U Benzodiazepines Scrn U Oth Cocaine Metabols U Cannabinoids Screen Assessment & Plan - Assessment and Plan (Free Text) Assessment: 58 yo Hisp Male presenting with abd pain post-colonscopy. 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 No signs of perforation on CT, mild stranding around hep flex/asc colon. Has risk factors with R sided lesion removal with hot snare. Furthermore, found to be febrile early this AM with increasing leukocytosis further supporting diagnosis. Plan: - Cont antibiotics (GNR and anaerobe coverage) - IVF - Clear liq diet, advance as tolerated - Supportive care - Monitor CBC, BMP daily - Would monitor pt another 24 hrs given rising leukocytosis Pt discussed with Dr. Gleason; please see attestation for further recs/changes <Volodymyr Gleason - Last Filed: 12/01/18 12:02> Meds - Medications Medications: Current Medications Acetaminophen (Tylenol 325mg Tab) 650 mg PO Q6H PRN PRN Reason: Pain, moderate (4-7) Last Admin: 12/01/18 03:51 Dose: 650 mg Acetaminophen (Tylenol 325mg Tab) 650 mg PO Q4 PRN PRN Reason: Fever >100.4 F Hyoscyamine (Levsin) 0.125 mg PO Q4H PRN PRN Reason: GI distress Lactobacillus Acidophilus (Bacid Acidophilus) 1 cap PO BID [facility] Last Admin: 12/01/18 09:54 Dose: 1 cap Pantoprazole Sodium (Protonix Inj) 40 mg IVP DAILY [facility] Last Admin: 12/01/18 09:55 Dose: 40 mg Tramadol HCl (Ultram) 50 mg PO TID PRN PRN Reason: Pain, severe (8-10) Last Admin: 12/01/18 09:55 Dose: 50 mg Results - Vital Signs Recent Vital Signs: Last Vital Signs Temp 98.3 F 12/01/18 09:45 Pulse 99 H 12/01/18 06:00 Resp 18 12/01/18 06:00 BP 103/56 L 12/01/18 06:00 Pulse Ox 95 12/01/18 06:00 - Labs Result Diagrams: 12/01/18 08:45 12/01/18 08:45 Labs: Laboratory Results - last 24 hr 12/01/18 12/01/18 12/01/18 00:30 00:30 02:50 WBC 17.5 H D RBC 5.41 Hgb 16.6 Hct 47.8 MCV 88.4 MCH 30.7 MCHC 34.7 RDW 13.6 Plt Count 301 MPV 10.7 Gran % Lymph % (Auto) [place] % (Auto) Eos % (Auto) Baso % (Auto) Gran # Lymph # (Auto) [place] # (Auto) Eos # (Auto) Baso # (Auto) Neutrophils % (Manual) Band Neutrophils % Lymphocytes % (Manual) Atypical Lymphs % Monocytes % (Manual) Basophils % (Manual) pO2 119 H VBG pH 7.45 H VBG pCO2 35.0 L VBG HCO3 24.3 VBG Total CO2 25.4 VBG O2 Sat (Calc) 100.0 H VBG Base Excess 0.7 VBG Potassium 3.6 Glucose 101 Lactate 1.1 FiO2 21.0 Sodium 136 133.0 Potassium 4.2 Chloride 101 102.0 Carbon Dioxide 27 Anion Gap 12 BUN 15 Creatinine 0.9 Est GFR ( Amer) > 60 Est GFR (Non-Af Amer) > 60 Random Glucose 108 Calcium 9.5 Total Bilirubin 0.8 AST 30 ALT 31 Alkaline Phosphatase 81 Total Protein 7.4 Albumin 4.4 Globulin 3.0 Albumin/Globulin Ratio 1.5 Lipase 52 Venous Blood Potassium 3.6 Urine Color Urine Appearance Urine pH Ur Specific [place] Urine Protein Urine Glucose (UA) Urine Ketones Urine Blood Urine Nitrate Urine Bilirubin Urine Urobilinogen Ur Leukocyte Esterase Urine Opiates Screen Urine Methadone Screen Ur Barbiturates Screen Ur Phencyclidine Scrn Ur Amphetamines Screen U Benzodiazepines Scrn U Oth Cocaine Metabols U Cannabinoids Screen 12/01/18 12/01/18 12/01/18 04:20 04:20 08:45 WBC 35.7 H* D RBC 4.88 Hgb 15.0 Hct 43.3 MCV 88.7 MCH 30.7 MCHC 34.6 RDW 13.8 Plt Count 280 MPV 10.4 Gran % 85.4 H Lymph % (Auto) 7.3 L [place] % (Auto) 7.2 H Eos % (Auto) 0.0 L Baso % (Auto) 0.1 Gran # 30.44 H Lymph # (Auto) 2.6 [place] # (Auto) 2.6 H Eos # (Auto) 0.0 Baso # (Auto) 0.03 Neutrophils % (Manual) 84 H Band Neutrophils % 4 H Lymphocytes % (Manual) 4 L Atypical Lymphs % 4 H Monocytes % (Manual) 3 Basophils % (Manual) 1 pO2 VBG pH VBG pCO2 VBG HCO3 VBG Total CO2 VBG O2 Sat (Calc) VBG Base Excess VBG Potassium Glucose Lactate FiO2 Sodium Potassium Chloride Carbon Dioxide Anion Gap BUN Creatinine Est GFR ( Amer) Est GFR (Non-Af Amer) Random Glucose Calcium Total Bilirubin AST ALT Alkaline Phosphatase Total Protein Albumin Globulin Albumin/Globulin Ratio Lipase Venous Blood Potassium Urine Color Yellow Urine Appearance Clear Urine pH 6.0 Ur Specific [place] 1.015 Urine Protein Negative Urine Glucose (UA) Negative Urine Ketones Trace H Urine Blood Negative Urine Nitrate Negative Urine Bilirubin Negative Urine Urobilinogen 0.2 Ur Leukocyte Esterase Negative Urine Opiates Screen Positive H Urine Methadone Screen Negative Ur Barbiturates Screen Negative Ur Phencyclidine Scrn Negative Ur Amphetamines Screen Negative U Benzodiazepines Scrn Negative U Oth Cocaine Metabols Negative U Cannabinoids Screen Positive H 12/01/18 08:45 WBC RBC Hgb Hct MCV MCH MCHC RDW Plt Count MPV Gran % Lymph % (Auto) [place] % (Auto) Eos % (Auto) Baso % (Auto) Gran # Lymph # (Auto) [place] # (Auto) Eos # (Auto) Baso # (Auto) Neutrophils % (Manual) Band Neutrophils % Lymphocytes % (Manual) Atypical Lymphs % Monocytes % (Manual) Basophils % (Manual) pO2 VBG pH VBG pCO2 VBG HCO3 VBG Total CO2 VBG O2 Sat (Calc) VBG Base Excess VBG Potassium Glucose Lactate FiO2 Sodium 138 Potassium 4.3 Chloride 107 Carbon Dioxide 25 Anion Gap 10 BUN 11 Creatinine 0.7 L Est GFR ( Amer) > 60 Est GFR (Non-Af Amer) > 60 Random Glucose 102 Calcium 8.6 Total Bilirubin 1.0 AST 21 ALT 26 Alkaline Phosphatase 56 Total Protein 6.4 Albumin 3.6 Globulin 2.8 Albumin/Globulin Ratio 1.3 Lipase Venous Blood Potassium Urine Color Urine Appearance Urine pH Ur Specific [place] Urine Protein Urine Glucose (UA) Urine Ketones Urine Blood Urine Nitrate Urine Bilirubin Urine Urobilinogen Ur Leukocyte Esterase Urine Opiates Screen Urine Methadone Screen Ur Barbiturates Screen Ur Phencyclidine Scrn Ur Amphetamines Screen U Benzodiazepines Scrn U Oth Cocaine Metabols U Cannabinoids Screen Attending/Attestation - Attestation I have fully participated in the care of the patient.: Yes I have reviewed all pertinent clinical information: Yes Notes (Text): 12/01/18 11:59 Chronic back pain Abdominal pain s/p colonoscopy yesterday with hot snare polypectomy in ascending colon CT imaging reviewed by me showing area of colitis near hepatic flexure with avel-colonic fat stranding Clinical features suggestive of post-polypectomy syndrome, no abdominal free air noted on imaging - Diet as tolerated - Continue with IVF hydration, supportive care - Continue with antibiotics, suggest 5 day course of therapy - Pain control - Will continue to monitor patient clinical course
[2018-12-01] MEDS: Meropenem IV 1 gm in NS 1 GM/50 ML BAG IVPB SCH ×3 (13:57→21:31)
--- NOTE | 2018-12-01 20:28 | CARD ---
APPROVED REPORT Date of service: 11/30/2018 EKG Measurement Heart [id number] ID [id number] <Conclusion> Sinus tachycardia Incomplete right bundle branch block Borderline ECG
[2018-12-02] MEDS: Meropenem IV 1 gm in NS 1 GM/50 ML BAG IVPB SCH ×3 (05:41→21:09)
[2018-12-02 07:32] LABS: BASO # 0.03 K/mm3 (0.0-2.0); BASO % 0.2 % (0.0-3.0); EOS # 0.2 (0.0-0.7); GRAN # 15.02 (1.4-6.5); GRAN % 78.7 % (50.0-68.0); HEMOGLOBIN 14.8 g/dL (14.0-18.0); LYMPH # 2.7 (1.2-3.4); LYMPH % 13.9 % (22.0-35.0); MEAN CELL VOLUME 89.6 fl (80.0-105.0); MEAN CORPUSCULAR HEMOGLOBIN 30.6 pg (25.0-35.0); MEAN CORPUSCULAR HGB CONC 34.2 g/dl (31.0-37.0); MEAN PLATELET VOLUME 10.2 fl (7.0-11.0); MONO # 1.2 (0.1-0.6); MONO % 6.2 % (1.0-6.0); RBC 4.83 10^6/uL (3.5-6.1); RED CELL DISTRIBUTION WIDTH 13.9 % (11.5-14.5); WHITE BLOOD COUNT 19.1 10^3/uL (4.5-11.0)
--- NOTE | 2018-12-02 07:32 | CP.PCM.PN ---
<MorrisPaulino L - Last Filed: 12/02/18 17:18> Subjective - Date & Time of Evaluation Date of Evaluation: 12/02/18 Time of Evaluation: 07:30 - Subjective Subjective: Resident Progress Note for Hospitalist Service Patient examined at bedside. No acute events overnight. Patient states his abdominal is improved, however it is still localized right upper quadrant. He has been tolerating liquid diet. Denies fevers, chills, chest pain, shortness of breath, diarrhea, constipation, dysuria. Objective - Vital Signs/Intake and Output Vital Signs (last 24 hours): Temp Pulse Resp BP Pulse Ox 99 F 79 20 122/79 98 12/01/18 23:20 12/01/18 23:20 12/01/18 23:20 12/01/18 23:20 12/01/18 23:20 Intake and Output: 12/02/18 12/02/18 06:59 18:59 Intake Total 720 Balance 720 - Medications Medications: Current Medications Acetaminophen (Tylenol 325mg Tab) 650 mg PO Q6H PRN PRN Reason: Pain, moderate (4-7) Last Admin: 12/01/18 03:51 Dose: 650 mg Acetaminophen (Tylenol 325mg Tab) 650 mg PO Q4 PRN PRN Reason: Fever >100.4 F Hyoscyamine (Levsin) 0.125 mg PO Q4H PRN PRN Reason: GI distress Meropenem (Merrem Iv 1 Gm Premix) 1 gm in 50 mls @ 100 mls/hr IVPB Q8 CARMEL; Protocol Stop: 12/10/18 12:38 Last Admin: 12/02/18 05:41 Dose: 100 mls/hr Lactobacillus Acidophilus (Bacid Acidophilus) 1 cap PO BID [facility] Last Admin: 12/01/18 17:41 Dose: 1 cap Pantoprazole Sodium (Protonix Inj) 40 mg IVP DAILY [facility] Last Admin: 12/01/18 09:55 Dose: 40 mg Tramadol HCl (Ultram) 50 mg PO TID PRN PRN Reason: Pain, severe (8-10) Last Admin: 12/02/18 00:36 Dose: 50 mg - Labs Labs: 12/01/18 08:45 12/01/18 08:45 - Constitutional Appears: Non-toxic, No Acute Distress - Head Exam Head Exam: ATRAUMATIC, NORMOCEPHALIC - Eye Exam Eye Exam: EOMI, Normal appearance - ENT Exam ENT Exam: Mucous Membranes Moist - Respiratory Exam Respiratory Exam: Clear to Ausculation Bilateral, NORMAL BREATHING PATTERN. absent: Wheezes, Respiratory Distress - Cardiovascular Exam Cardiovascular Exam: RRR, +S1, +S2. absent: Murmur - GI/Abdominal Exam GI & Abdominal Exam: Soft, Tenderness, Normal Bowel Sounds. absent: Distended, Firm, Guarding, Rigid, Rebound Additional comments: mild in RUQ - Extremities Exam Extremities Exam: absent: Pedal Edema, Tenderness - Neurological Exam Neurological Exam: Alert, Awake, Oriented x3 - Psychiatric Exam Psychiatric exam: Normal Affect, Normal Mood - Skin Skin Exam: Dry, Intact, Normal Color Assessment and Plan - Assessment and Plan (Free Text) Assessment: 58 year old male with past medical history of opioid substance abuse, cocaine use, alcohol abuse, gastritis, fatty infiltration of the liver presents with abdominal pain s/p colonoscopy 11/30. Plan: Sepsis- resolving - currently afebrile, leukocytosis trending down - likely due to post polypectomy syndrome - recent polypectomy on endoscopy of an 8 mm pedunculated polyp in the ascending colon - Abdominal CT shows scattered simple hepatic cysts, distended gallbladder, fat thickening and free fluid, mild thickening of hepatic flexure of the colon with adjacent fat stranding, possible colitis - blood cultures neg x2 - Lipase unremarkable - Clear liquid diet advanced - Tylenol and tramadol PRN - lactobacillus and hyoscyamine - Dr. Gleason (GI) consulted. Recs appreciated. - Merrem 1 gm IV Q8 as per ID recs PPX - Protonix 40 mg IVP daily - Lovenox 40 mg SC daily Case discussed with Dr. Gómez Morris PGY-1 <Denton Magaña - Last Filed: 12/04/18 12:36> Objective - Vital Signs/Intake and Output Vital Signs (last 24 hours): Temp Pulse Resp BP Pulse Ox 98.2 F 61 18 108/56 L 98 12/03/18 07:00 12/03/18 07:00 12/03/18 07:00 12/03/18 07:00 12/03/18 07:00 - Labs Labs: 12/03/18 07:00 12/03/18 07:00 Attending/Attestation - Attestation I have personally seen and examined this patient.: Yes I have fully participated in the care of the patient.: Yes I have reviewed all pertinent clinical information, including history, physical exam and plan: Yes Notes (Text): 12/04/18 12:36 Medical record note made by the resident after discussion with my direction and input after the patient was personally seen and examined by me. I have reviewed the chart and agree that the record accurately reflects by personal performance of the history, physical exam, data review, and medical decision-making, in the course for the patient. I have also personally directed the plan of care.
[2018-12-02 07:48] LABS: ALB/GLOB RATIO 1.3 (1.1-1.8); ALBUMIN 3.5 g/dL (3.0-4.8); ALT/SGPT 26 U/L (7-56); AST/SGOT 15 U/L (17-59); BLOOD UREA NITROGEN 9 mg/dL (7-21); CALCIUM 9.3 mg/dL (8.4-10.5); GFR NON-AFRICAN AMERICAN > 60
--- NOTE | 2018-12-02 07:54 | CP.PCM.PN ---
<Art Lobato - Last Filed: 12/02/18 10:51> Subjective - Date & Time of Evaluation Date of Evaluation: 12/02/18 Time of Evaluation: 07:30 - Subjective Subjective: PGY-4 GI Fellow Prog Note Pt lying in bed when seen this AM. States abd pain much improved and tolerating diet without issue. No fevers nor BMs yet, but stated he is passing gas. 5 point ROS negative other than stated above Objective - Vital Signs/Intake and Output Vital Signs (last 24 hours): Temp Pulse Resp BP Pulse Ox 99 F 79 20 122/79 98 12/01/18 23:20 12/01/18 23:20 12/01/18 23:20 12/01/18 23:20 12/01/18 23:20 Intake and Output: 12/02/18 12/02/18 06:59 18:59 Intake Total 720 Balance 720 - Medications Medications: Current Medications Acetaminophen (Tylenol 325mg Tab) 650 mg PO Q6H PRN PRN Reason: Pain, moderate (4-7) Last Admin: 12/01/18 03:51 Dose: 650 mg Acetaminophen (Tylenol 325mg Tab) 650 mg PO Q4 PRN PRN Reason: Fever >100.4 F Hyoscyamine (Levsin) 0.125 mg PO Q4H PRN PRN Reason: GI distress Meropenem (Merrem Iv 1 Gm Premix) 1 gm in 50 mls @ 100 mls/hr IVPB Q8 [facility]; Protocol Stop: 12/10/18 12:38 Last Admin: 12/02/18 05:41 Dose: 100 mls/hr Lactobacillus Acidophilus (Bacid Acidophilus) 1 cap PO BID [facility] Last Admin: 12/01/18 17:41 Dose: 1 cap Pantoprazole Sodium (Protonix Inj) 40 mg IVP DAILY [facility] Last Admin: 12/01/18 09:55 Dose: 40 mg Tramadol HCl (Ultram) 50 mg PO TID PRN PRN Reason: Pain, severe (8-10) Last Admin: 12/02/18 00:36 Dose: 50 mg - Labs Labs: 12/02/18 07:15 12/02/18 07:15 - Constitutional Appears: Well, No Acute Distress - Head Exam Head Exam: ATRAUMATIC, NORMAL INSPECTION - Eye Exam Eye Exam: EOMI. absent: Scleral icterus - ENT Exam ENT Exam: Mucous Membranes Moist. absent: Mucous Membranes Dry - Respiratory Exam Respiratory Exam: NORMAL BREATHING PATTERN. absent: Accessory Muscle Use, Respiratory Distress - GI/Abdominal Exam GI & Abdominal Exam: Soft, Normal Bowel Sounds. absent: Bruit, Distended, Firm, Guarding, Rigid, Tenderness, Mass, Organomegaly, Pulsatile Mass, Rebound Assessment and Plan - Assessment and Plan (Free Text) Assessment: 58 yo Hisp Male presenting with abd pain post-colonscopy. # Abd Pain: Improved. 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 No signs of perforation on CT, mild stranding around hep flex/asc colon. Has risk factors with R sided lesion removal with hot snare. Furthermore, found to be febrile shortly after admission with increasing leukocytosis further supporting diagnosis. Plan: - Cont antibiotics (GNR and anaerobe coverage) x 5 days, defer to ID regarding regimen --- Of note, his "allergy" to certain antibiotics are described as feels "loopy;" he denied any anaphylaxis, rash, urticaria, etc. - Advanced diet - Supportive care - OK to DC later today if continues to feel well and tolerating diet Pt discussed with Dr. Gleason; please see attestation for further recs/changes <Volodymyr Gleason - Last Filed: 12/02/18 12:18> Objective - Vital Signs/Intake and Output Vital Signs (last 24 hours): Temp Pulse Resp BP Pulse Ox 98.5 F 71 18 129/79 98 12/02/18 06:00 12/02/18 06:00 12/02/18 06:00 12/02/18 06:00 12/02/18 06:00 Intake and Output: 12/02/18 12/02/18 06:59 18:59 Intake Total 720 Balance 720 - Medications Medications: Current Medications Acetaminophen (Tylenol 325mg Tab) 650 mg PO Q6H PRN PRN Reason: Pain, moderate (4-7) Last Admin: 12/01/18 03:51 Dose: 650 mg Acetaminophen (Tylenol 325mg Tab) 650 mg PO Q4 PRN PRN Reason: Fever >100.4 F Hyoscyamine (Levsin) 0.125 mg PO Q4H PRN PRN Reason: GI distress Meropenem (Merrem Iv 1 Gm Premix) 1 gm in 50 mls @ 100 mls/hr IVPB Q8 [facility]; Protocol Stop: 12/10/18 12:38 Last Admin: 12/02/18 05:41 Dose: 100 mls/hr Lactobacillus Acidophilus (Bacid Acidophilus) 1 cap PO BID [facility] Last Admin: 12/02/18 09:21 Dose: 1 cap Pantoprazole Sodium (Protonix Inj) 40 mg IVP DAILY [facility] Last Admin: 12/02/18 09:21 Dose: 40 mg Tramadol HCl (Ultram) 50 mg PO TID PRN PRN Reason: Pain, severe (8-10) Last Admin: 12/02/18 00:36 Dose: 50 mg - Labs Labs: 12/02/18 07:15 12/02/18 07:15 Attending/Attestation - Attestation I have personally seen and examined this patient.: Yes I have fully participated in the care of the patient.: Yes I have reviewed all pertinent clinical information, including history, physical exam and plan: Yes Notes (Text): 12/02/18 12:16 I have seen and examined patient with GI fellow. No acute events overnight, he is seen sitting in chair next to bed, appears quite comfortable. His abdominal pain has resolved and he denies nausea, vomiting, fever/chills. Tolerating PO liquids without difficulty, no bowel movements over past 24 hours. Leukocytosis Abdominal pain, fever - post polypectomy syndrome - Advance diet as tolerated - Would continue with antibiotics to complete 5-7 day course, follow up ID recommendations - Maintain bowel regimen to prevent constipation - If tolerating diet, from GI standpoint ok to discharge home with subsequent outpatient follow up. Will sign off case, please reconsult as necessary, thank you.
[2018-12-02] MEDS: Lactobacillus Acidophilus 500 MU Cap PO SCH ×2 (09:21→17:33)
--- NOTE | 2018-12-02 17:27 | CP.PCM.PN ---
<Roshni Tripathi - Last Filed: 12/02/18 17:35> Subjective - Date & Time of Evaluation Date of Evaluation: 12/02/18 Time of Evaluation: 11:00 - Subjective Subjective: ID Progress note PGY-[address] Arredondo Abdominal pain is 2/10 now upon palpation. No nausea. tolerated liquids. No acute complaint per 12 point ROS Objective - Vital Signs/Intake and Output Vital Signs (last 24 hours): Temp Pulse Resp BP Pulse Ox 99.0 F 76 20 124/77 97 12/02/18 14:00 12/02/18 14:00 12/02/18 14:00 12/02/18 14:00 12/02/18 14:00 Intake and Output: 12/02/18 12/02/18 06:59 18:59 Intake Total 720 Balance 720 - Medications Medications: Current Medications Acetaminophen (Tylenol 325mg Tab) 650 mg PO Q6H PRN PRN Reason: Pain, moderate (4-7) Last Admin: 12/01/18 03:51 Dose: 650 mg Acetaminophen (Tylenol 325mg Tab) 650 mg PO Q4 PRN PRN Reason: Fever >100.4 F Hyoscyamine (Levsin) 0.125 mg PO Q4H PRN PRN Reason: GI distress Meropenem (Merrem Iv 1 Gm Premix) 1 gm in 50 mls @ 100 mls/hr IVPB Q8 [facility]; Protocol Stop: 12/10/18 12:38 Last Admin: 12/02/18 14:18 Dose: 100 mls/hr Lactobacillus Acidophilus (Bacid Acidophilus) 1 cap PO BID [facility] Last Admin: 12/02/18 09:21 Dose: 1 cap Pantoprazole Sodium (Protonix Inj) 40 mg IVP DAILY [facility] Last Admin: 12/02/18 09:21 Dose: 40 mg Tramadol HCl (Ultram) 50 mg PO TID PRN PRN Reason: Pain, severe (8-10) Last Admin: 12/02/18 00:36 Dose: 50 mg - Labs Labs: 12/02/18 07:15 12/02/18 07:15 - Constitutional Appears: No Acute Distress - Head Exam Head Exam: ATRAUMATIC, NORMAL INSPECTION, NORMOCEPHALIC - Eye Exam Eye Exam: EOMI, Normal appearance, PERRL. absent: Scleral icterus Pupil Exam: NORMAL ACCOMODATION - ENT Exam ENT Exam: Mucous Membranes Moist - Neck Exam Additional comments: supple - Respiratory Exam Respiratory Exam: Clear to Ausculation Bilateral. absent: Rales, Rhonchi, Wheezes - Cardiovascular Exam Cardiovascular Exam: REGULAR RHYTHM, +S1, +S2. absent: Murmur - GI/Abdominal Exam GI & Abdominal Exam: Soft, Normal Bowel Sounds. absent: Guarding, Rigid, Tenderness - Extremities Exam Extremities Exam: absent: Calf Tenderness, Pedal Edema - Back Exam Back Exam: absent: CVA tenderness (L), CVA tenderness (R) - Neurological Exam Neurological Exam: Alert, Awake, Normal Gait, Oriented x3 - Psychiatric Exam Psychiatric exam: Normal Affect, Normal Mood - Skin Skin Exam: Dry, Warm Assessment and Plan - Assessment and Plan (Free Text) Plan: A: Severe Abdominal pain - improves Sepsis with intraabdominal infection likely due to Post-Polypectomy Syndrome, hospital acquired, s/p polepectomy and colonoscopy Leukocytosis 35 --> 19 Cefdinir and levofloxacin allergy P: merem (day 2) for drug resistant GN, pseudomonas, and enterococci coverage, pending culture result HIV: neg Follow on WBC, temp, clinical course Imaging: No signs of perforation on CT, mild stranding around hep flex/asc colon. s/r/d/w Dr Arredondo <Roc Arredondo - Last Filed: 12/02/18 23:08> Objective - Vital Signs/Intake and Output Vital Signs (last 24 hours): Temp Pulse Resp BP Pulse Ox 99.0 F 76 20 124/77 97 12/02/18 14:00 12/02/18 14:00 12/02/18 14:00 12/02/18 14:00 12/02/18 14:00 Intake and Output: 12/02/18 12/03/18 18:59 06:59 Intake Total 680 Balance 680 - Medications Medications: Current Medications Acetaminophen (Tylenol 325mg Tab) 650 mg PO Q6H PRN PRN Reason: Pain, moderate (4-7) Last Admin: 12/01/18 03:51 Dose: 650 mg Acetaminophen (Tylenol 325mg Tab) 650 mg PO Q4 PRN PRN Reason: Fever >100.4 F Hyoscyamine (Levsin) 0.125 mg PO Q4H PRN PRN Reason: GI distress Meropenem (Merrem Iv 1 Gm Premix) 1 gm in 50 mls @ 100 mls/hr IVPB Q8 [facility]; Protocol Stop: 12/10/18 12:38 Last Admin: 12/02/18 21:09 Dose: 100 mls/hr Lactobacillus Acidophilus (Bacid Acidophilus) 1 cap PO BID [facility] Last Admin: 12/02/18 17:33 Dose: 1 cap Pantoprazole Sodium (Protonix Inj) 40 mg IVP DAILY [facility] Last Admin: 12/02/18 09:21 Dose: 40 mg Tramadol HCl (Ultram) 50 mg PO TID PRN PRN Reason: Pain, severe (8-10) Last Admin: 12/02/18 00:36 Dose: 50 mg - Labs Labs: 12/02/18 07:15 12/02/18 07:15 Assessment and Plan - Assessment and Plan (Free Text) Plan: Infectious diseases Attending Physician Attestation Patient seen and examined, discussed with director of graduate medical education. I have reviewed the patient's history of present illness, past medical, social, personal and family histories, pertinent physical exam findings, course so far in this hospital admission, pertinent laboratory and imaging results. I agree with the above findings, assessment and plan. In addition, continue Merrem for this patient wit h SIRS, R/O sepsis due to intra-abdominal infection in this patient who is S/P colonoscopy with polypectomy. Follow up final blood cx results (so far negative). Continue to trend WBC count (slowly improving).
[2018-12-02 23:14] VITALS: RESP 18; O2SAT 98
[2018-12-03] MEDS: Meropenem IV 1 gm in NS 1 GM/50 ML BAG IVPB SCH (05:45)
[2018-12-03 07:50] LABS: BASO # 0.04 K/mm3 (0.0-2.0); BASO % 0.3 % (0.0-3.0); EOS # 0.3 (0.0-0.7); EOS % 2.3 % (1.5-5.0); GRAN # 9.21 (1.4-6.5); GRAN % 71.7 % (50.0-68.0); HEMOGLOBIN 15.6 g/dL (14.0-18.0); LYMPH # 2.3 (1.2-3.4); LYMPH % 17.7 % (22.0-35.0); MEAN CELL VOLUME 89.4 fl (80.0-105.0); MEAN CORPUSCULAR HEMOGLOBIN 30.1 pg (25.0-35.0); MEAN CORPUSCULAR HGB CONC 33.7 g/dl (31.0-37.0); MEAN PLATELET VOLUME 10.3 fl (7.0-11.0); RBC 5.18 10^6/uL (3.5-6.1); RED CELL DISTRIBUTION WIDTH 13.7 % (11.5-14.5); WHITE BLOOD COUNT 12.9 10^3/uL (4.5-11.0)
[2018-12-03 08:04] LABS: ALB/GLOB RATIO 1.3 (1.1-1.8); ALBUMIN 3.8 g/dL (3.0-4.8); ALT/SGPT 27 U/L (7-56); AST/SGOT 17 U/L (17-59); BLOOD UREA NITROGEN 11 mg/dL (7-21); CALCIUM 9.6 mg/dL (8.4-10.5); GFR NON-AFRICAN AMERICAN > 60
[2018-12-03 09:06] VITALS: BP 108/56; PULSE 61; TEMP 98.2
[2018-12-03] MEDS: Lactobacillus Acidophilus 500 MU Cap PO SCH (09:24)
--- NOTE | 2018-12-03 11:26 | CP.PCM.DIS ---
<Edmundo Chaudhary - Last Filed: 12/03/18 11:23> Provider - Provider Date of Admission: 12/02/18 14:19 Attending physician: Denton Magaña MD Primary care physician: Boston Salazar MD Consults: 12/01/18 03:48 Consult [Physician Consult] Routine Comment: Consulting Provider: Narinder Wade Consulting Physician: Narinder Wade Reason for Consult: abdominal pain and fever Time Spent in preparation of Discharge (in minutes): 45 Diagnosis - Discharge Diagnosis (1) Abdominal pain Status: Resolved (2) S/P colonoscopy with polypectomy Status: Resolved (3) Sepsis Status: Resolved Hospital Course - Lab Results Lab Results: Micro Results 12/01/18 02:55 Blood Blood Culture - Preliminary NO GROWTH AFTER 48 HOURS 12/01/18 02:40 Blood Blood Culture - Preliminary NO GROWTH AFTER 48 HOURS Most Recent Lab Values WBC 12.9 10^3/uL (4.5-11.0) H D 12/03/18 07:00 RBC 5.18 10^6/uL (3.5-6.1) 12/03/18 07:00 Hgb 15.6 g/dL (14.0-18.0) 12/03/18 07:00 Hct 46.3 % (42.0-52.0) 12/03/18 07:00 MCV 89.4 fl (80.0-105.0) 12/03/18 07:00 MCH 30.1 pg (25.0-35.0) 12/03/18 07:00 MCHC 33.7 g/dl (31.0-37.0) 12/03/18 07:00 RDW 13.7 % (11.5-14.5) 12/03/18 07:00 Plt Count 299 10^3/uL (120.0-450.0) 12/03/18 07:00 MPV 10.3 fl (7.0-11.0) 12/03/18 07:00 Gran % 71.7 % (50.0-68.0) H 12/03/18 07:00 Lymph % (Auto) 17.7 % (22.0-35.0) L 12/03/18 07:00 [place] % (Auto) 8.0 % (1.0-6.0) H 12/03/18 07:00 Eos % (Auto) 2.3 % (1.5-5.0) 12/03/18 07:00 Baso % (Auto) 0.3 % (0.0-3.0) 12/03/18 07:00 Gran # 9.21 (1.4-6.5) H 12/03/18 07:00 Lymph # (Auto) 2.3 (1.2-3.4) 12/03/18 07:00 [place] # (Auto) 1.0 (0.1-0.6) H 12/03/18 07:00 Eos # (Auto) 0.3 (0.0-0.7) 12/03/18 07:00 Baso # (Auto) 0.04 K/mm3 (0.0-2.0) 12/03/18 07:00 Neutrophils % (Manual) 84 % (50.0-70.0) H 12/01/18 08:45 Band Neutrophils % 4 % (0-2) H 12/01/18 08:45 Lymphocytes % (Manual) 4 % (22.0-35.0) L 12/01/18 08:45 Atypical Lymphs % 4 % (0.0-0.0) H 12/01/18 08:45 Monocytes % (Manual) 3 % (1.0-6.0) 12/01/18 08:45 Basophils % (Manual) 1 % (0.0-1.0) 12/01/18 08:45 pO2 119 mm/Hg (30-55) H 12/01/18 02:50 VBG pH 7.45 (7.32-7.43) H 12/01/18 02:50 VBG pCO2 35.0 (40-60) L 12/01/18 02:50 VBG HCO3 24.3 mmol/l (21-28) 12/01/18 02:50 VBG Total CO2 25.4 mmol.L (22-28) 12/01/18 02:50 VBG O2 Sat (Calc) 100.0 % (40-65) H 12/01/18 02:50 VBG Base Excess 0.7 mmol/L (0.0-2.0) 12/01/18 02:50 VBG Potassium 3.6 mmol/L (3.6-5.2) 12/01/18 02:50 Sodium 133.0 mmol/L (132-148) 12/01/18 02:50 Chloride 102.0 mmol/L (98-107) 12/01/18 02:50 Glucose 101 mg/dl (75-110) 12/01/18 02:50 Lactate 1.1 mmol/L (0.7-2.1) 12/01/18 02:50 FiO2 21.0 % 12/01/18 02:50 Sodium 140 mmol/L (132-148) 12/03/18 07:00 Potassium 4.0 mmol/L (3.6-5.0) 12/03/18 07:00 Chloride 105 mmol/L (98-107) 12/03/18 07:00 Carbon Dioxide 30 mmol/L (21-33) 12/03/18 07:00 Anion Gap 9 (10-20) L 12/03/18 07:00 BUN 11 mg/dL (7-21) 12/03/18 07:00 Creatinine 0.8 mg/dl (0.8-1.5) 12/03/18 07:00 Est GFR ( Amer) > 60 12/03/18 07:00 Est GFR (Non-Af Amer) > 60 12/03/18 07:00 Random Glucose 98 mg/dL (70-110) 12/03/18 07:00 Calcium 9.6 mg/dL (8.4-10.5) 12/03/18 07:00 Total Bilirubin 0.5 mg/dL (0.2-1.3) 12/03/18 07:00 AST 17 U/L (17-59) 12/03/18 07:00 ALT 27 U/L (7-56) 12/03/18 07:00 Alkaline Phosphatase 67 U/L (38-126) 12/03/18 07:00 Total Protein 6.8 g/dL (5.8-8.3) 12/03/18 07:00 Albumin 3.8 g/dL (3.0-4.8) 12/03/18 07:00 Globulin 3.0 gm/dL 12/03/18 07:00 Albumin/Globulin Ratio 1.3 (1.1-1.8) 12/03/18 07:00 Lipase 52 U/L (23-300) 12/01/18 00:30 Procalcitonin 0.79 NG/ML (0.19-0.49) H 12/01/18 11:30 Venous Blood Potassium 3.6 mmol/L (3.6-5.2) 12/01/18 02:50 Urine Color Yellow (YELLOW) 12/01/18 04:20 Urine Appearance Clear (CLEAR) 12/01/18 04:20 Urine pH 6.0 (4.7-8.0) 12/01/18 04:20 Ur Specific [place] 1.015 (1.005-1.035) 12/01/18 04:20 Urine Protein Negative mg/dL (<30 mg/dL) 12/01/18 04:20 Urine Glucose (UA) Negative mg/dL (NEGATIVE) 12/01/18 04:20 Urine Ketones Trace mg/dL (NEGATIVE) H 12/01/18 04:20 Urine Blood Negative (NEGATIVE) 12/01/18 04:20 Urine Nitrate Negative (NEGATIVE) 12/01/18 04:20 Urine Bilirubin Negative (NEGATIVE) 12/01/18 04:20 Urine Urobilinogen 0.2 E.U./dL (<1 E.U./dL) 12/01/18 04:20 Ur Leukocyte Esterase Negative Fidel/uL (NEGATIVE) 12/01/18 04:20 Urine Opiates Screen Positive (NEGATIVE) H 12/01/18 04:20 Urine Methadone Screen Negative (NEGATIVE) 12/01/18 04:20 Ur Barbiturates Screen Negative (NEGATIVE) 12/01/18 04:20 Ur Phencyclidine Scrn Negative (NEGATIVE) 12/01/18 04:20 Ur Amphetamines Screen Negative (NEGATIVE) 12/01/18 04:20 U Benzodiazepines Scrn Negative (NEGATIVE) 12/01/18 04:20 U Oth Cocaine Metabols Negative (NEGATIVE) 12/01/18 04:20 U Cannabinoids Screen Positive (NEGATIVE) H 12/01/18 04:20 HIV 1&2 Ag/Ab, 4th Gen Nonreactive (Nonreactive) 12/01/18 13:00 - Hospital Course Hospital Course: 58 year old male with past medical history of opioid substance abuse, cocaine use, alcohol abuse, gastritis, fatty infiltration of the liver presents with abdominal pain status post colonoscopy on the afternoon of 1/9. Patient reports that he has had longstanding abdominal pain since June 2018. Patient had a colonoscopy a day prior to admission that showed an 8 mm polyp in the ascending colon which was removed with hot snare. Patient reports severe abdominal pain since the procedure. In the ED, patient was found to have fever, tachycardia, and leukocytosis. Abdominal CT showed scattered simple hepatic cysts, distended gallbladder, fat thickening and free fluid, mild thickening of hepatic flexure of the colon with adjacent fat stranding, possible colitis. Patient was admitted for intractable abdominal pain and sepsis likely 2/2 intraabdominal infection. ID was consulted, patient placed on IV abx and IVF. Blood cultures were negative after 48 hrs. 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 Their recommendation was to continue IV antibiotics and supportive care. Discharge recommended when PO diet is tolerated. Today, patient was seen and evaluated at bedside. Patient states that abdominal pain was gone and had no symptoms overnight. Patient was able to tolerate PO diet. As patient was hemodynamically stable, he was discharged. Patient was given Rx for PO cipro/flagyl and advised to complete 4 day course per ID recommendations. Patient was also given rx for sulcrafate. Patient advised to follow up with PMD and GI on discharge for further management and results of biopsy. Patient acknowledged and agreed to plan. Discharge Exam - Head Exam Head Exam: ATRAUMATIC, NORMAL INSPECTION, NORMOCEPHALIC - Eye Exam Eye Exam: EOMI, Normal appearance, PERRL Pupil Exam: NORMAL ACCOMODATION, PERRL - ENT Exam ENT Exam: Normal Exam - Respiratory Exam Respiratory Exam: Clear to PA & Lateral. absent: Rales, Rhonchi, Wheezes - Cardiovascular Exam Cardiovascular Exam: RRR, +S1, +S2. absent: Clicks, Diastolic murmur, Rubs, Systolic Murmur - GI/Abdominal Exam GI & Abdominal Exam: Soft. absent: Distended, Guarding, Rebound, Tenderness - Extremities Exam Extremities exam: normal inspection - Neurological Exam Neurological exam: Alert, CN II-XII Intact, Oriented x3 - Psychiatric Exam Psychiatric exam: Normal Affect, Normal Mood - Skin Skin Exam: Dry, Intact, Normal Color, Warm Discharge Plan - Discharge Medications Prescriptions: RX: Ciprofloxacin [Cipro] 500 mg PO Q12H #8 tab RX: Hyoscyamine Sulfate 0.125 mg SL Q8H PRN 5 Days tab.subl PRN Reason: Gi Distress Metronidazole [Flagyl] 500 mg PO Q8H #12 tablet RX: Sucralfate [Carafate] 1 gm PO Q6H #30 tablet - Follow Up Plan Condition: STABLE Disposition: HOME/ ROUTINE Instructions: Acute Abdomen (Belly Pain), Colon Polyps (DC), Acute Abdominal Pain (DC), Acute Abdominal Pain (GEN) Additional Instructions: Please follow up with your primary medical doctor Dr. Salazar within one week. Also follow up with your crm marketing analyst Dr. Gleason within one week. Complete antibiotics as prescribed. Resume your home medications as prescribed. Return to ED if symptoms return or worsen. Referrals: Boston Salazar MD [Primary Care Provider] - Volodymyr Gleason MD [Staff Provider] - <Denton Magaña - Last Filed: 12/04/18 12:35> Provider - Provider Date of Admission: 12/02/18 14:19 Attending physician: Denton Magaña MD Primary care physician: Boston Salazar MD Consults: 12/01/18 03:48 Consult [Physician Consult] Routine Comment: Consulting Provider: Narinder Wade Consulting Physician: Narinder Wade Reason for Consult: abdominal pain and fever Hospital Course - Lab Results Lab Results: Micro Results 12/01/18 02:55 Blood Blood Culture - Preliminary NO GROWTH AFTER 3 DAYS 12/01/18 02:40 Blood Blood Culture - Preliminary NO GROWTH AFTER 3 DAYS Most Recent Lab Values WBC 12.9 10^3/uL (4.5-11.0) H D 12/03/18 07:00 RBC 5.18 10^6/uL (3.5-6.1) 12/03/18 07:00 Hgb 15.6 g/dL (14.0-18.0) 12/03/18 07:00 Hct 46.3 % (42.0-52.0) 12/03/18 07:00 MCV 89.4 fl (80.0-105.0) 12/03/18 07:00 MCH 30.1 pg (25.0-35.0) 12/03/18 07:00 MCHC 33.7 g/dl (31.0-37.0) 12/03/18 07:00 RDW 13.7 % (11.5-14.5) 12/03/18 07:00 Plt Count 299 10^3/uL (120.0-450.0) 12/03/18 07:00 MPV 10.3 fl (7.0-11.0) 12/03/18 07:00 Gran % 71.7 % (50.0-68.0) H 12/03/18 07:00 Lymph % (Auto) 17.7 % (22.0-35.0) L 12/03/18 07:00 [place] % (Auto) 8.0 % (1.0-6.0) H 12/03/18 07:00 Eos % (Auto) 2.3 % (1.5-5.0) 12/03/18 07:00 Baso % (Auto) 0.3 % (0.0-3.0) 12/03/18 07:00 Gran # 9.21 (1.4-6.5) H 12/03/18 07:00 Lymph # (Auto) 2.3 (1.2-3.4) 12/03/18 07:00 [place] # (Auto) 1.0 (0.1-0.6) H 12/03/18 07:00 Eos # (Auto) 0.3 (0.0-0.7) 12/03/18 07:00 Baso # (Auto) 0.04 K/mm3 (0.0-2.0) 12/03/18 07:00 Neutrophils % (Manual) 84 % (50.0-70.0) H 12/01/18 08:45 Band Neutrophils % 4 % (0-2) H 12/01/18 08:45 Lymphocytes % (Manual) 4 % (22.0-35.0) L 12/01/18 08:45 Atypical Lymphs % 4 % (0.0-0.0) H 12/01/18 08:45 Monocytes % (Manual) 3 % (1.0-6.0) 12/01/18 08:45 Basophils % (Manual) 1 % (0.0-1.0) 12/01/18 08:45 pO2 119 mm/Hg (30-55) H 12/01/18 02:50 VBG pH 7.45 (7.32-7.43) H 12/01/18 02:50 VBG pCO2 35.0 (40-60) L 12/01/18 02:50 VBG HCO3 24.3 mmol/l (21-28) 12/01/18 02:50 VBG Total CO2 25.4 mmol.L (22-28) 12/01/18 02:50 VBG O2 Sat (Calc) 100.0 % (40-65) H 12/01/18 02:50 VBG Base Excess 0.7 mmol/L (0.0-2.0) 12/01/18 02:50 VBG Potassium 3.6 mmol/L (3.6-5.2) 12/01/18 02:50 Sodium 133.0 mmol/L (132-148) 12/01/18 02:50 Chloride 102.0 mmol/L (98-107) 12/01/18 02:50 Glucose 101 mg/dl (75-110) 12/01/18 02:50 Lactate 1.1 mmol/L (0.7-2.1) 12/01/18 02:50 FiO2 21.0 % 12/01/18 02:50 Sodium 140 mmol/L (132-148) 12/03/18 07:00 Potassium 4.0 mmol/L (3.6-5.0) 12/03/18 07:00 Chloride 105 mmol/L (98-107) 12/03/18 07:00 Carbon Dioxide 30 mmol/L (21-33) 12/03/18 07:00 Anion Gap 9 (10-20) L 12/03/18 07:00 BUN 11 mg/dL (7-21) 12/03/18 07:00 Creatinine 0.8 mg/dl (0.8-1.5) 12/03/18 07:00 Est GFR ( Amer) > 60 12/03/18 07:00 Est GFR (Non-Af Amer) > 60 12/03/18 07:00 Random Glucose 98 mg/dL (70-110) 12/03/18 07:00 Calcium 9.6 mg/dL (8.4-10.5) 12/03/18 07:00 Total Bilirubin 0.5 mg/dL (0.2-1.3) 12/03/18 07:00 AST 17 U/L (17-59) 12/03/18 07:00 ALT 27 U/L (7-56) 12/03/18 07:00 Alkaline Phosphatase 67 U/L (38-126) 12/03/18 07:00 Total Protein 6.8 g/dL (5.8-8.3) 12/03/18 07:00 Albumin 3.8 g/dL (3.0-4.8) 12/03/18 07:00 Globulin 3.0 gm/dL 12/03/18 07:00 Albumin/Globulin Ratio 1.3 (1.1-1.8) 12/03/18 07:00 Lipase 52 U/L (23-300) 12/01/18 00:30 Procalcitonin 0.79 NG/ML (0.19-0.49) H 12/01/18 11:30 Venous Blood Potassium 3.6 mmol/L (3.6-5.2) 12/01/18 02:50 Urine Color Yellow (YELLOW) 12/01/18 04:20 Urine Appearance Clear (CLEAR) 12/01/18 04:20 Urine pH 6.0 (4.7-8.0) 12/01/18 04:20 Ur Specific [place] 1.015 (1.005-1.035) 12/01/18 04:20 Urine Protein Negative mg/dL (<30 mg/dL) 12/01/18 04:20 Urine Glucose (UA) Negative mg/dL (NEGATIVE) 12/01/18 04:20 Urine Ketones Trace mg/dL (NEGATIVE) H 12/01/18 04:20 Urine Blood Negative (NEGATIVE) 12/01/18 04:20 Urine Nitrate Negative (NEGATIVE) 12/01/18 04:20 Urine Bilirubin Negative (NEGATIVE) 12/01/18 04:20 Urine Urobilinogen 0.2 E.U./dL (<1 E.U./dL) 12/01/18 04:20 Ur Leukocyte Esterase Negative Fidel/uL (NEGATIVE) 12/01/18 04:20 Urine Opiates Screen Positive (NEGATIVE) H 12/01/18 04:20 Urine Methadone Screen Negative (NEGATIVE) 12/01/18 04:20 Ur Barbiturates Screen Negative (NEGATIVE) 12/01/18 04:20 Ur Phencyclidine Scrn Negative (NEGATIVE) 12/01/18 04:20 Ur Amphetamines Screen Negative (NEGATIVE) 12/01/18 04:20 U Benzodiazepines Scrn Negative (NEGATIVE) 12/01/18 04:20 U Oth Cocaine Metabols Negative (NEGATIVE) 12/01/18 04:20 U Cannabinoids Screen Positive (NEGATIVE) H 12/01/18 04:20 HIV 1&2 Ag/Ab, 4th Gen Nonreactive (Nonreactive) 12/01/18 13:00 Attending/Attestation - Attestation I have personally seen and examined this patient.: Yes I have fully participated in the care of the patient.: Yes I have reviewed all pertinent clinical information, including history, physical exam and plan: Yes Notes (Text): 12/04/18 12:30 Medical record note made by the resident after discussion with my direction and input after the patient was personally seen and examined by me. I have reviewed the chart and agree that the record accurately reflects by personal performance of the history, physical exam, data review, and medical decision-making, in the course for the patient. I have also personally directed the plan of care 58 year old male with PMH of opioid substance abuse, cocaine use, alcohol abuse, gastritis, fatty infiltration of the liver presents with abdominal pain status post colonoscopy on the afternoon of 11/30. In the ED, patient was found to have fever, tachycardia, and leukocytosis. Abdominal CT showed scattered simple hepatic cysts, distended gallbladder, fat thickening and free fluid, mild thickening of hepatic flexure of the colon with adjacent fat stranding, possible colitis. Patient was admitted for intractable abdominal pain and sepsis likely 2/2 intra abdominal infection. . Blood cultures were negative after 48 hrs. Patient was evaluated by GI, who states that abdominal pain is most likely related to post- polypectomy syndrome. Their recommendation was to continue IV antibiotics and pang pportive care. Patient abdominal pain has improved.WBC is close to normal. Patient will be discharge home on cipro/flagyl . Patient was also given rx for sulcrafate. Patient will follow up with PMD and GI on discharge for further management and results of biopsy. Management plan was discussed in detail with patient. Education was provided.
[2018-12-03] MEDS ORDERED: Atrop/Hyosc/Scopal/PB Elixir (120 ml) PO ONE (12:03)
--- NOTE | 2018-12-03 21:17 | PN ---
DATE: 12/03/2018 SUBJECTIVE: The patient is seen earlier this morning in room 575, bed 1. No fevers or chills. No abdominal pain. He is doing much better on exam. PHYSICAL EXAMINATION: VITAL SIGNS: Temperature is 98, blood pressure is 108/60, and respiratory rate of 18. HEENT: Unremarkable. NECK: Supple. LUNGS: Decreased breath sounds. HEART: Normal S1, S2. ABDOMEN: Soft, nontender. LABORATORY DATA: Examination reveals a white count of 12,000, procalcitonin is noted and serology is negative for HIV. Microbiology reveals blood cultures are negative. ASSESSMENT AND PLAN: A 58-year-old male who was seen earlier this morning with severe abdominal pain, sepsis, postpolypectomy syndrome, status post polypectomy, colostomy, leukocytosis improving. He is on meropenem. The patient is for discharge today with p.o. antibiotics. We would recommend p.o. Augmentin. Narinder Wdae MD
== END 2018-12-03 16:23 | disposition home or self-care (01) | DRG 872 ==
LOC: ED 23:17 → ERH 12-01 03:02 → 5RSO 12-01 05:11 → OBSVTOIN 12-02 14:19
PROVIDERS: ADMIT Internal Medicine; ATTEND Internal Medicine
DX: A41.9 Sepsis, unspecified organism (principal); K91.89 Other postprocedural complications and disorders of digestive system; G89.29 Other chronic pain; D12.2 Benign neoplasm of ascending colon; K21.9 Gastro-esophageal reflux disease without esophagitis; K76.0 Fatty (change of) liver, not elsewhere classified; K76.89 Other specified diseases of liver; K82.8 Other specified diseases of gallbladder; N40.0 Benign prostatic hyperplasia without lower urinary tract symptoms; N42.89 Other specified disorders of prostate; Y83.8 Other surgical procedures as the cause of abnormal reaction of the patient, or of later complication, without mention of misadventure at the time of the procedure; Z80.0 Family history of malignant neoplasm of digestive organs; Z82.5 Family history of asthma and other chronic lower respiratory diseases; Z93.3 Colostomy status; Z96.651 Presence of right artificial knee joint; Z87.891 Personal history of nicotine dependence; F12.90 Cannabis use, unspecified, uncomplicated; F14.11 Cocaine abuse, in remission; G47.00 Insomnia, unspecified; Z88.1 Allergy status to other antibiotic agents; Z88.8 Allergy status to other drugs, medicaments and biological substances; Z16.30 Resistance to unspecified antimicrobial drugs